=== PATIENT | male | born 1960 | race Caucasian/White ===

== ENCOUNTER 2024-10-18 07:51 | Inpatient (IN) ==
--- NOTE | 2024-10-18 08:12 | Emergency Department Note ---
Impression & Plan SBO (small bowel obstruction), Severe nausea and vomiting, Elevated lactic acid level ED Provider Note NAME: ALISA RUIZ AGE: 64 SEX: M : 1960 ARRIVES VIA: Walk-In INFORMANT: Patient, ED PROVIDER(S): Roger Calles DO CHIEF COMPLAINT: "bowel obstruction" HPI: This is a 64-year-old male who is otherwise healthy presenting to [facility] for further evaluation of nausea and vomiting. Patient is accompanied by his who provide additional history. The patient reports that he has had nausea and vomiting for the last day or so. Last bowel movement and flatus was yesterday morning. Patient is concerned that he has small bowel obstruction. Patient denies any abdominal surgical history. He is professor at [employer]. Patient has no other complaints at this time. They deny fever or chills. No cough or congestion. Denies chest pain or palpitations. No shortness of breath. They deny abdominal pain, nausea and vomiting. No urinary complaints. No recent changes in bowel movements. Patient denies recent changes in medications or OTC supplements. Patient offers no other complaints, today. ADDITIONAL HISTORY OBTAINED: Per HPI Chronic Medical/Social Conditions Affecting Care: Per HPI PAST MEDICAL HISTORY: See Below PAST SURGICAL HISTORY: See Below FAMILY HISTORY: See Below SOCIAL HISTORY: See Below HOME MEDICATIONS: See Below ALLERGIES: See Below VITALS: See Below PHYSICAL EXAMINATION: GENERAL: Sitting up in bed, alert, well appearing, well nourished, no distress, non-toxic EYE EXAM: normal conjunctiva. PERRL and EOM's grossly intact. OROPHARYNX: no exudate, no erythema, lips, buccal mucosa, and tongue normal and mucous membranes are dry NECK: supple, no nuchal rigidity, no adenopathy, non-tender LUNGS: Clear to auscultation. Normal chest wall mechanics HEART: no murmurs, regular rate, regular rhythm ABDOMEN: abdomen soft, non-tender, no masses, no rebound or guarding. BACK: Back is symmetrical on inspection and there is no deformity, no midline tenderness, no CVA tenderness. SKIN: no rashes and no bruising UPPER EXTREMITIES: upper extremities are grossly normal. LOWER EXTREMITIES: No pitting edema. NEURO EXAM: Normal sensorium, GCS 15, normal speech, no gross weakness of arms, no gross weakness of legs. MEDICAL DECISION MAKING: Differential diagnoses includes but not limited to appendicitis, bowel obstruction, diverticulitis, malignancy, nephrolithiasis, gastroenteritis, ACS, PNA, pancreatitis, biliary disease, UTI In summary, this is a 64 year old male who presented with nausea and vomiting. Differential as above. Nursing notes and pertinent past medical records reviewed. Vital signs reviewed and the patient is afebrile and hemodynamically stable. History and presentation revealed otherwise healthy individual with no significant abdominal surgical history presenting with severe nausea and vomiting and failure to pass flatus or bowel movement. Physical examination revealed no significant evidence of peritonitis on exam. As a result of my initial evaluation, we will plan for CT abdomen/pelvis imaging. Will provide antiemetics, pain control as well as IV fluid resuscitation. I would feel it would be less likely for the patient to have a small bowel obstruction given his negative abdominal surgical history. Still could be a possibility. Would also be concern for possible malignancy given his complaints. Diagnostics interpreted by me include EKG and cardiac monitoring as listed below: -Cardiac Monitoring: An order was placed for continuous cardiac monitoring. The monitor shows a rate of 70-90s with regular rhythm. -ECG: EKG independently interpreted by me reveals normal sinus rhythm at a ventricular rate of [address] segment changes to suggest STEMI. Some artifact on baseline. QTc is 421 ms. Patient completed laboratory studies and imaging. Results independently interpreted by me are leukocytosis. No anemia. The patient was managed with IV fluid resuscitation, analgesia and antiemetics. Further laboratory evaluation shows no evidence of kidney dysfunction. Electrolytes are normal. Does have mild hyperglycemia. Lactate is elevated at 2.2. This is minimal. IV fluid resuscitation is ongoing. LFTs are normal besides mild elevation in bilirubin at 1.8. Lipase is normal. CT abdomen/pelvis independently turbid by me reveals a small bowel obstruction without evidence of perforation. Patient's stomach is not severely distended. He has had no further evidence of nausea and vomiting was reporting improvement on reevaluation. Will hold off on NG tube placement. Patient was discussed with general surgery. Just will be down to see the patient. Plan for observation n.p.o. status. Ultimately, the decision was made to admit the patient for small bowel obstruction. It was recommended to admit this patient at 1003. I discussed the case with the hospitalist service via telephone/TigerText and they are agreeable to admit the patient to their services. Based on the above, including the patient's age, coexisting illnesses, labs, imaging, and exam findings the decision to treat as an inpatient. I discussed the patient with the hospitalist team who recommended admission to their services. They received the medications, treatments, interventions indicated above and their condition []. I discussed my findings with the patient and their family and they understand and agree with the treatment plan. All patient / family questions were answered to their satisfaction. Consults/Care Managements Discussions: Per MDM ER treatment provided: See above Procedures:none Critical Care: None The chart was completed utilizing [employer] Speech voice recognition software. Grammatical errors, random word insertions, pronoun errors, and incomplete sentences are an occasional consequence of this system due to software limitations, ambient noise, and hardware issues. Any formal questions or concerns about the content, text, or information contained within the body of this dictation should be directly addressed to the physician for clarification. Past Med/Surg History Problem List (Updated 10/19/24 @ 08:10 by Roger Calles DO) Elevated lactic acid level (Acute) Severe nausea and vomiting (Acute) SBO (small bowel obstruction) (Acute) SBO (small bowel obstruction) Sensorineural hearing loss (SNHL) of left ear with unrestricted hearing of right ear Sensorineural hearing loss (SNHL) of left ear with restricted hearing of right ear Low back pain (Chronic) Routine general medical examination at a health care facility Medical History (Updated 10/19/24 @ 08:10 by Roger Calles DO) No significant past medical history Surgical History No pertinent past surgical history Family History Denies family history of Ovarian cancer Prostate cancer Myocardial infarction Breast cancer Lung cancer Colorectal cancer Stroke Social History Smoking Status: Never smoker Second Hand Exposure: No; Do You Dip or Chew Tobacco: No; Hx Alcohol Use: Yes Alcohol type: beer, wine and hard liquor Hx Substance Use: No Preferred Language: Occitan Communication Ability: Effective Visual Impairment: No Limitations Hearing Ability: Normal 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 Beliefs That Will Affect Care: None Current Living Situation: Spouse Other Information That Helps Us Care for You: No Feels Safe at Home: Yes Safety Concerns: Feels Safe At This Time Childhood Exposure to Second-Hand Smoke: No Assistive Devices: None Allergies Allergies Allergy/AdvReac Type Severity Reaction Status Date / Time No Known Drug Allergies Allergy Verified 10/17/24 10:56 Home Meds Home Medications Medication Instructions Recorded Confirmed No Known Home Medications 03/03/24 10/18/24 Results & Data (ED) Vital Signs Vital Signs - 24 hr 10/18/24 08:12 10/18/24 08:17 10/18/24 08:18 Pulse Rate 82 80 83 Pulse Rate [Apical] Respiratory Rate 20 Blood Pressure 139/91 Blood Pressure [Left Arm] Blood Pressure Mean 105 Blood Pressure Mean [Left Arm] Blood Pressure Position [Left Arm] Pulse Oximetry 98 98 Oxygen Delivery Method Room Air Room Air 10/18/24 09:50 10/18/24 09:50 Pulse Rate 72 Pulse Rate [Apical] 72 Respiratory Rate 20 18 Blood Pressure 105/71 Blood Pressure [Left Arm] 105/71 Blood Pressure Mean 80 Blood Pressure Mean [Left Arm] 82 Blood Pressure Position [Left Arm] Sitting Pulse Oximetry 97 96 Oxygen Delivery Method Room Air Room Air Laboratory Data 10/19/24 04:31 10/19/24 04:31 Lab Results 10/18/24 10/18/24 Range/Units 08:16 08:30 WBC 14.19 H (4.8-10.8) K/ul RBC 5.85 (4.70-6.10) M/uL Hgb 17.0 (14.0-18.0) g/dl Hct 51.7 (42.0-52.0) % MCV 88.4 (80.0-100.0) fL MCH 29.1 (25.0-34.0) pg MCHC 32.9 (32.0-36.0) g/dL RDW Std Deviation 40.6 (36.4-46.3) fL RDW Coeff of Jass 12.6 (11.5-14.5) % Plt Count 396 (130-400) K/uL MPV 10.3 (9.4-12.4) fL Immature Gran % (Auto) 0.4 % Neut % (Auto) 82.4 % Lymph % (Auto) 9.7 % [place] % (Auto) 7.4 % Eos % (Auto) 0.0 % Baso % (Auto) 0.1 % Neut # (Auto) 11.70 H (1.40-6.50) K/uL Lymph # (Auto) 1.37 (1.20-3.40) K/uL [place] # (Auto) 1.05 H (0.11-0.59) K/uL Eos # (Auto) 0.00 (0.00-0.50) K/uL Baso # (Auto) 0.01 (0.00-0.20) K/uL Immature Gran # (Auto) 0.06 (0.01-0.20) K/uL Sodium 138 (136-145) mmol/L Potassium 4.2 (3.5-5.1) mmol/L Chloride 100 (98-107) mmol/L Carbon Dioxide 27 (21-32) mmol/L Anion Gap 11 (3-11) BUN 19 (6-23) mg/dl Creatinine 1.22 (0.6-1.4) mg/dl Est Cr Clr Drug Dosing 63.2 ml/min eGFR 66.20 BUN/Creatinine Ratio 15.6 (10-20) Glucose 143 H (70-99(Fasting)) mg/dl Lactate 2.2 H* (0.4-2.0) mmol/L Calcium 9.8 (8.6-10.3) mg/dl Total Bilirubin 1.8 H (0.2-1.0) mg/dl AST 13 (13-39) U/L ALT 9 (7-52) U/L Alkaline Phosphatase 51 (34-104) U/L C-Reactive Protein 0.92 H (0-0.5) mg/dl Total Protein 8.1 (6.0-8.3) gm/dl Albumin 4.6 (3.4-5.0) gm/dl Globulin 3.5 (2.5-4.0) gm/dl Albumin/Globulin Ratio 1.3 (0.9-2) Lipase 19 (11-82) U/L Procalcitonin 0.02 (0-0.5) ng/ml Administered Medications Lactated Ringer's (Lr) 1,000 mls @ 115 mls/hr IV .Q8H42M [facility] Stop: 10/21/24 11:29 Last Admin: 10/19/24 06:03 Dose: 115 mls/hr Documented By: Infusion: 10/19/24 05:41 Dose: Infused Documented By: Admin: 10/18/24 20:59 Dose: 115 mls/hr Documented By: Infusion: 10/18/24 20:17 Dose: Infused Documented By: Admin: 10/18/24 11:35 Dose: 115 mls/hr Documented By: QGV Discontinued Medications Droperidol (Droperidol 5 Mg/2 Ml Vial) 1.25 mg IV ONE STA Stop: 10/18/24 08:13 Last Admin: 10/18/24 08:31 Dose: 1.25 mg Documented By: QGV Fentanyl Citrate (Fentanyl Citrate Pf 100 Mcg/2 Ml Vial) 50 mcg IV Q15M PRN PRN Reason: Pain Stop: 11/01/24 08:11 Last Admin: 10/18/24 08:31 Dose: 50 mcg Documented By: QGV Sodium Chloride (Nss) 1,000 mls @ 999 mls/hr IV .Q1H1M STA Stop: 10/18/24 09:12 Last Infusion: 10/18/24 09:50 Dose: Infused Documented By: Admin: 10/18/24 08:31 Dose: 999 mls/hr Documented By: QGV Famotidine (Pepcid 20mg Iv Push) 20 mg in 5 mls @ 2.5 mls/min IV NOW STA Stop: 10/18/24 11:21 Last Admin: 10/18/24 11:35 Dose: 2.5 mls/min Documented By: QGV Ioversol (Optiray 320 100ml) 94 ml IV ONCE ONE Stop: 10/18/24 09:15 Last Admin: 10/18/24 09:15 Dose: 94 ml Documented By: ARNULFO Imaging Data Radiologist's Impression: Abdomen/Pelvis CT 10/18/24 08:[address] WITH IV CONTRAST CT DOSE: 938.46 mGy.cm HISTORY: concern for SBO, but no abd surgical history TECHNIQUE: Multiaxial CT images of the abdomen and pelvis were performed following the IV administration of 90 cc of Optiray, A dose lowering technique was utilized adhering to the principles of ALARA. COMPARISON STUDY: None FINDINGS: ABDOMEN: There are a few tiny cysts at the liver. Otherwise the liver, gallbladder, spleen, pancreas, and adrenal glands are unremarkable. There are a few tiny cyst at the kidneys. There is no hydronephrosis bilaterally. There are mild atherosclerotic calcifications. No abdominal aortic aneurysm. Pelvis: Prostate is enlarged. Urinary bladder is nondistended. There is motion artifact. There is mild retained stool. There is mild colonic diverticulosis. No acute diverticulitis. There is dilatation of the small bowel from the mid jejunal region to the distal jejunal or proximal ileal region measuring up to 3.5 cm diameter. Mid and distal ileum are decompressed. There is trace free fluid. No free air or abscess. Osseous structures: No acute osseous findings. IMPRESSION: Findings consistent with small bowel obstruction. No free air seen to suggest perforation. ACT 112: Negative or not required by law. The above report was generated using voice recognition software. It may contain grammatical, syntax or spelling errors. Electronically signed by: Teodoro Cuello M.D. 10/18/2024 9:34 AM Discharge Plan Visit Data Chief Complaint: Vomiting Stated Complaint: NAUSEA, VOMITTING, CANNOT EAT ED Provider: Roger Calles Discharge Problem: SBO (small bowel obstruction), Severe nausea and vomiting, Elevated lactic acid level Patient Disposition: Admitted As Inpatient Condition: Fair Discharge Instructions Interventions: ED Discharge Assessment Last Done: 10/18/24 13:27
[2024-10-18 08:28] LABS: Hematocrit (blood only) 51.7 % (42.0-52.0); Hemoglobin 17.0 g/dl (14.0-18.0); Immature Granulocytes # (auto) 0.06 K/uL (0.01-0.20); Immature Granulocytes % (auto) 0.4 %; Mean Corpuscular Hemoglobin 29.1 pg (25.0-34.0); Mean Corpuscular Volume 88.4 fL (80.0-100.0); Platelet Count 396 K/uL (130-400); RDW Standard Deviation 40.6 fL (36.4-46.3); Red Blood Count 5.85 M/uL (4.70-6.10); White Blood Count 14.19 K/ul (4.8-10.8)
[2024-10-18] MEDS: SODIUM CHLORIDE 0.9% 1,000 ML IV STA (08:31)
[2024-10-18] MEDS: DROPERIDOL 5 MG/2 ML VIAL IV STA (08:31)
[2024-10-18 08:48] LABS: Alanine Aminotransferase 9.0 U/L (7-52); Albumin Globulin Ratio 1.3 (0.9-2); Alkaline Phosphatase 51.0 U/L (34-104); Anion Gap 11.0 (3-11); Bilirubin,Total 1.8 mg/dl (0.2-1.0); Blood Urea Nitrogen 19.0 mg/dl (6-23); Calcium 9.8 mg/dl (8.6-10.3); Carbon Dioxide 27.0 mmol/L (21-32); Chloride 100.0 mmol/L (98-107); Creatinine Clr Calc Pharmacy 63.2 ml/min; Globulin 3.5 gm/dl (2.5-4.0); Glucose 143.0 mg/dl (70-99(Fasting)); Lipase 19.0 U/L (11-82); Potassium 4.2 mmol/L (3.5-5.1); Sodium 138.0 mmol/L (136-145); Total Protein 8.1 gm/dl (6.0-8.3)
[2024-10-18] MEDS: OPTIRAY 320 100ml IV ONE (09:15)
--- NOTE | 2024-10-18 09:36 | CT Scan Report ---
ABDOMEN AND PELVIS CT WITH IV CONTRAST CT DOSE: 938.46 mGy.cm HISTORY: concern for SBO, but no abd surgical history TECHNIQUE: Multiaxial CT images of the abdomen and pelvis were performed following the IV administrat ion of 90 cc of Optiray, A dose lowering technique was utilized adhering to the principles of ALARA. COMPARISON STUDY: None FINDINGS: ABDOMEN: There are a few tiny cysts at the liver. Otherwise the liver, gallbladder, spleen, pancreas, and adrenal glands are unremarkable. There are a few tiny cyst at the kidneys. There is no hydroneph rosis bilaterally. There are mild atherosclerotic calcifications. No abdominal aortic aneurysm. Pelvis: Prostate is enlarged. Urinary bladder is nondistended. There is motion artifact. There is mil d retained stool. There is mild colonic diverticulosis. No acute diverticulitis. There is dilatation of the small bowel from the mid jejunal region to the distal jejunal or proximal ileal region measuri ng up to 3.5 cm diameter. Mid and distal ileum are decompressed. There is trace free fluid. No free a ir or abscess. Osseous structures: No acute osseous findings. IMPRESSION: Findings consistent with small bowel obstruction. No free air seen to suggest perforation . ACT 112: Negative or not required by law. The above report was generated using voice recognition software. It may contain grammatical, syntax o r spelling errors. Electronically signed by: Teodoro Cuello M.D. 10/18/2024 9:34 AM
--- NOTE | 2024-10-18 10:55 | History & Physical Report ---
Date of Service October 18, 2024 Assessment & Plan (1) SBO (small bowel obstruction): Plan This patient is a 64-year-old male without significant PMH who presented on 10/18 for abdominal pain, nausea and vomiting. A/P CT on arrival was consistent with small bowel obstruction; no free air seen to suggest perforation. #Small bowel obstruction NG tube deferred on arrival; may require NG tube if recurrence of vomiting Leukocytosis at 14.19 on arrival No other signs of bowel compromise (no tachycardia, fever, acidosis; no signs of peritonitis) Procalcitonin and CRP ordered, pending Strict n.p.o. IV fluid with LR at 125mL/hr IV famotidine 20 mg daily IV pain control with acetaminophen and Dilaudid PRN IV Zofran PRN General Surgery consult appreciated Disposition: Obs -admit to [facility] VTE PPx: SCDs History of Present Illness Primary Care Provider: NO PCP Mr. Masterson is a 64-year-old male with PMH of SNHL who presented on 10/18 after developing abdominal pain, nausea, and vomiting. Patient woke up feeling fine yesterday, but then around 8 AM started having lower abdominal pain intermittently. Did not take any pain medicine for this. Later in the day he started vomiting and was unable to keep down solids or liquids. He vomited again this morning. Last bowel movement was yesterday morning just before all his symptoms began; he has not had a bowel movement since. No prior history of abdominal surgeries, adhesions, or hernias. No prior history of small bowel obstructions. No sick contacts. No diarrhea. No fevers. Patient denies smoking or tobacco use. He reports he is not currently having any abdominal pain, but earlier yesterday he had 7 out of 10 abdominal pain in the lower stomach just below the umbilicus; no radiation. Patient does not take any medicine on a daily basis. Vital signs stable at time of admission. ED course: Droperidol 1.25 mg IV NSS 1000 mL IV Fentanyl 50 mcg IV ROS: Patient endorses abdominal pain just below the umbilicus (improving), nausea, and vomiting. Patient denies fever, chills, night sweats, lightheadedness when walking, chest pain, chest palpitations, SOB, pleuritic CP, cough, diarrhea, or changes in urinary habits. Allergies Allergy/AdvReac Type Severity Reaction Status Date / Time No Known Drug Allergies Allergy Verified 10/17/24 10:56 Home Medications Medication Instructions Recorded Confirmed Type No Known Home Medications 03/03/24 10/18/24 History Past Med/Surg History Problem List (Updated 10/18/24 @ 11:14 by Rosenda Tena PA-C) SBO (small bowel obstruction) Sensorineural hearing loss (SNHL) of left ear with unrestricted hearing of right ear Sensorineural hearing loss (SNHL) of left ear with restricted hearing of right ear Low back pain (Chronic) Routine general medical examination at a [facility] facility Medical History (Updated 10/18/24 @ 11:14 by Rosenda Tena PA-C) No significant past medical history Surgical History No pertinent past surgical history Family History Denies family history of Ovarian cancer Prostate cancer Myocardial infarction Breast cancer Lung cancer Colorectal cancer Stroke Social History Smoking Status: Never smoker Second Hand Exposure: No; Do You Dip or Chew Tobacco: No; Hx Alcohol Use: Yes Hx Substance Use: No Preferred Language: Yi Communication Ability: Effective Visual Impairment: No Limitations Hearing Ability: Normal Derrick Worker Required: No Feels Safe at Home: Yes Childhood Exposure to Second-Hand Smoke: No Review of Systems Review of Systems: See HPI above Physical Exam Physical Exam: General: no acute distress; pleasant affect; at bedside; non-toxic appearing; well-nourished; cooperative; SpO2 97% on RA HEENT: normocephalic, atraumatic; no scleral icterus; PERRLA; vision and hearing intact Neck: supple; trachea midline Skin: warm, dry without signs of tenting; no cyanosis; no rashes, bruising, lesions, or erythema noted CV: chest wall NTP; RRR; S1/S2 normal; no murmurs/rubs/gallops; pulses intact and symmetric at radial, DP, and PT Lungs: no acute respiratory distress; symmetrical chest wall expansion; clear breath sounds across all lung van w/o adventitious sounds; no wheezing ABD: Soft; no rashes or bruising appreciable in the abdomen or flanks bilaterally; left upper quadrant is mildly TTP; hypogastric region just below the umbilicus is TTP; otherwise NTP; hypoactive present; no rebound/guarding; no distention MSK: no tics or fasciculations; no edema noted in the LEs b/l, nonerythematous Neuro: A&Ox3; normal mood and affect; fluent speech; no focal deficits; patient reports sensation is intact and symmetric in the lower extremity bilaterally Results & Data Results & Data Vital Signs (Past 12 Hours) Vital Signs Temp Pulse Pulse Resp BP BP Pulse Ox 10/18/24 09:50 72 20 105/71 97 10/18/24 08:18 83 10/18/24 08:17 80 20 139/91 98 10/18/24 08:12 82 98 10/18/24 07:59 36.5 C 100 H 19 97/67 L 97 O2 Del Method 10/18/24 09:50 Room Air 10/18/24 08:18 10/18/24 08:17 Room Air 10/18/24 08:12 Room Air 10/18/24 07:59 Room Air Laboratory Results Abnormal lab results 10/18/24 10/18/24 Range/Units 08:16 08:30 WBC 14.19 H (4.8-10.8) K/ul Neut # (Auto) 11.70 H (1.40-6.50) K/uL [place] # (Auto) 1.05 H (0.11-0.59) K/uL Glucose 143 H (70-99(Fasting)) mg/dl Lactate 2.2 H* (0.4-2.0) mmol/L Total Bilirubin 1.8 H (0.2-1.0) mg/dl Diagnostic Findings Abdomen/Pelvis CT 10/18/24 08:[address] WITH IV CONTRAST CT DOSE: 938.46 mGy.cm HISTORY: concern for SBO, but no abd surgical history TECHNIQUE: Multiaxial CT images of the abdomen and pelvis were performed following the IV administration of 90 cc of Optiray, A dose lowering technique was utilized adhering to the principles of ALARA. COMPARISON STUDY: None FINDINGS: ABDOMEN: There are a few tiny cysts at the liver. Otherwise the liver, gallbladder, spleen, pancreas, and adrenal glands are unremarkable. There are a few tiny cyst at the kidneys. There is no hydronephrosis bilaterally. There are mild atherosclerotic calcifications. No abdominal aortic aneurysm. Pelvis: Prostate is enlarged. Urinary bladder is nondistended. There is motion artifact. There is mild retained stool. There is mild colonic diverticulosis. No acute diverticulitis. There is dilatation of the small bowel from the mid jejunal region to the distal jejunal or proximal ileal region measuring up to 3.5 cm diameter. Mid and distal ileum are decompressed. There is trace free fluid. No free air or abscess. Osseous structures: No acute osseous findings. IMPRESSION: Findings consistent with small bowel obstruction. No free air seen to suggest perforation. ACT 112: Negative or not required by law. The above report was generated using voice recognition software. It may contain grammatical, syntax or spelling errors. Electronically signed by: Teodoro Cuello M.D. 10/18/2024 9:34 AM ECG Additional Comments: ECG revealed NSR at 79 bpm; QTc 421; no prior EKGs for comparison Code Status & VTE Plan Code Status Full code VTE Prophylaxis Plan VTE Prophylaxis will be ordered: Yes Supervising Physician Co-Signing Physician Notes I personally examined the patient and verified all valentine points of history and exam, discussed case, and agree with decision making with Jason Cabral PAC feeling about the same as this AM. no worse. vitals noted nad heent nc at mmm breathing unlabored noaccessory muscles good effort skin no rashes no pallor or icterus labs and diagnostics reviewed sbo - appreciate surgical consult given no prior abd surgeries. continue current care. otherwise as above PG Care Time/CCT Total # of Minutes Spent Total Time Spent with Patient: Total time spent is greater than 50% in coordination of care (as documented) at patient's floor/unit and/or counseling patient: [place] [address] INT INP/OBS CARE 3/75MIN Patient Type New Medical Decision Making Low Complexity Diagnoses SBO (small bowel obstruction) K56.609
--- NOTE | 2024-10-18 11:16 | Surgery Consultation ---
Date of Consultation October 18, 2024 Assessment & Plan (1) SBO (small bowel obstruction): 64 yo male with one day history of central abdominal pain with decreased bowel function and nausea and vomiting. CT scan with SBO. mild leukocytosis and elevated lactic acid at 2.2 likely secondary to dehydration and vomiting. Abdomen soft, nondistended,, tender in central abdomen without guarding ,rebound or peritonitis. Discussed imaging and lab findings with patient and . Discussed etiology of SBO and will require close monitoring and conservative management. No acute surgical intervention required at this time. NPO, bowel rest, IV fluids, pain management and antiemetics as needed, encouraged ambul ation. Medicine admit. Will follow along Discussed with Dr. romero who agrees with above. History of Present Illness Reason for Consultation: SBO Requesting Physician: Dr. Calles History of Present Illness Mr. Masterson is a 64 healthy male who presented to ED with increasing general abdominal pain with decreased bowel function and nausea and vomiting x 4. Vomiting bilious, no blood. Pain started yesterday morning suddenly in central abdomen, pain intermittent waxing and waning in severity. [place] distended this morning. Unable to keep food or liquids down. No history of prior SBO or prior abdominal surgeries. Ate a stuffed pepper yesterday morning. No recent sick contacts. Currently feeling much better , pain minimal, no longer feels distended but still has not been able to pass gas. No vomiting while in ED. Allergies Allergy/AdvReac Type Severity Reaction Status Date / Time No Known Drug Allergies Allergy Verified 10/17/24 10:56 Home Medications Medication Instructions Recorded Confirmed Type No Known Home Medications 03/03/24 10/18/24 History Patient History Medical History (Updated 10/18/24 @ 11:14 by Rosenda Tena PA-C) No significant past medical history Surgical History No pertinent past surgical history Family History Denies family history of Ovarian cancer Prostate cancer Myocardial infarction Breast cancer Lung cancer Colorectal cancer Stroke Social History Smoking Status: Never smoker Second Hand Exposure: No; Do You Dip or Chew Tobacco: No; Hx Alcohol Use: Yes Hx Substance Use: No Preferred Language: Swedish Communication Ability: Effective Visual Impairment: No Limitations Hearing Ability: Normal Network Security Officer Required: No Feels Safe at Home: Yes Childhood Exposure to Second-Hand Smoke: No Physical Exam Constitutional: WD/WN, vitals as above cooperative and comfortable; no acute distress and not ill appearing Respiratory: normal respiratory effort, lungs clear to auscultation Cardiovascular: RRR, no murmur, no edema Gastrointestinal (Abdomen): Inspection/Auscultation: abdomen normal to inspection; abdomen not distended Percussion/Palpation: + abdomen tender (mild in central abdomen) and abdomen soft; no guarding, abdomen not rigid and abdomen not firm no peritonitis Skin: no rashes, warm and dry Psychiatric: A+Ox3, euthymic affect Results & Data Vital Signs (Past 12 Hours) Vital Signs Temp Pulse Pulse Resp BP BP Pulse Ox 10/18/24 09:50 72 20 105/71 97 10/18/24 08:18 83 10/18/24 08:17 80 20 139/91 98 10/18/24 08:12 82 98 10/18/24 07:59 36.5 C 100 H 19 97/67 L 97 O2 Del Method 10/18/24 09:50 Room Air 10/18/24 08:18 10/18/24 08:17 Room Air 10/18/24 08:12 Room Air 10/18/24 07:59 Room Air Laboratory Results 10/18/24 10/18/24 Range/Units 08:30 08:16 WBC 14.19 H (4.8-10.8) K/ul RBC 5.85 (4.70-6.10) M/uL Hgb 17.0 (14.0-18.0) g/dl Hct 51.7 (42.0-52.0) % MCV 88.4 (80.0-100.0) fL MCH 29.1 (25.0-34.0) pg MCHC 32.9 (32.0-36.0) g/dL RDW Std Deviation 40.6 (36.4-46.3) fL RDW Coeff of Jass 12.6 (11.5-14.5) % Plt Count 396 (130-400) K/uL MPV 10.3 (9.4-12.4) fL Immature Gran % (Auto) 0.4 % Neut % (Auto) 82.4 % Lymph % (Auto) 9.7 % [place] % (Auto) 7.4 % Eos % (Auto) 0.0 % Baso % (Auto) 0.1 % Neut # (Auto) 11.70 H (1.40-6.50) K/uL Lymph # (Auto) 1.37 (1.20-3.40) K/uL [place] # (Auto) 1.05 H (0.11-0.59) K/uL Eos # (Auto) 0.00 (0.00-0.50) K/uL Baso # (Auto) 0.01 (0.00-0.20) K/uL Immature Gran # (Auto) 0.06 (0.01-0.20) K/uL Sodium 138 (136-145) mmol/L Potassium 4.2 (3.5-5.1) mmol/L Chloride 100 (98-107) mmol/L Carbon Dioxide 27 (21-32) mmol/L Anion Gap 11 (3-11) BUN 19 (6-23) mg/dl Creatinine 1.22 (0.6-1.4) mg/dl Est Cr Clr Drug Dosing 63.2 ml/min eGFR 66.20 BUN/Creatinine Ratio 15.6 (10-20) Glucose 143 H (70-99(Fasting)) mg/dl Lactate 2.2 H* (0.4-2.0) mmol/L Calcium 9.8 (8.6-10.3) mg/dl Total Bilirubin 1.8 H (0.2-1.0) mg/dl AST 13 (13-39) U/L ALT 9 (7-52) U/L Alkaline Phosphatase 51 (34-104) U/L Total Protein 8.1 (6.0-8.3) gm/dl Albumin 4.6 (3.4-5.0) gm/dl Globulin 3.5 (2.5-4.0) gm/dl Albumin/Globulin Ratio 1.3 (0.9-2) Lipase 19 (11-82) U/L Diagnostic Findings ABDOMEN AND PELVIS CT WITH IV CONTRAST CT DOSE: 938.46 mGy.cm HISTORY: concern for SBO, but no abd surgical history TECHNIQUE: Multiaxial CT images of the abdomen and pelvis were performed following the IV administration of 90 cc of Optiray, A dose lowering technique was utilized adhering to the principles of ALARA. COMPARISON STUDY: None FINDINGS: ABDOMEN: There are a few tiny cysts at the liver. Otherwise the liver, gallbladder, spleen, pancreas, and adrenal glands are unremarkable. There are a few tiny cyst at the kidneys. There is no hydronephrosis bilaterally. There are mild atherosclerotic calcifications. No abdominal aortic aneurysm. Pelvis: Prostate is enlarged. Urinary bladder is nondistended. There is motion artifact. There is mild retained stool. There is mild colonic diverticulosis. No acute diverticulitis. There is dilatation of the small bowel from the mid jejunal region to the distal jejunal or proximal ileal region measuring up to 3.5 cm diameter. Mid and distal ileum are decompressed. There is trace free fluid. No free air or abscess. Osseous structures: No acute osseous findings. IMPRESSION: Findings consistent with small bowel obstruction. No free air seen to suggest perforation. Personally reviewed ct scan images and concur with above findings
[2024-10-18] MEDS: LACTATED RINGER'S 1,000 ML IV SCH (11:35)
[2024-10-18] MEDS: FAMOTIDINE 20MG IV PUSH 20 MG/5 ML SYR IV STA (11:35)
--- NOTE | 2024-10-18 12:23 | Electrocardiogram Report ---
Test Reason : Blood Pressure : */* mmHG Vent. Rate : 79 BPM Atrial Rate : 79 BPM P-R Int : 158 ms QRS Dur : 96 ms QT Int : 368 ms P-R-T Axes : -19 -10 -21 degrees QTcB Int : 421 ms Normal sinus rhythm Normal ECG No previous ECGs available Confirmed by Murali Dover ([id number]) on 10/18/2024 12:23:39 PM Referred By: REFERRED SELF Confirmed By: Murali Dover
[2024-10-18] MEDS ORDERED: ACETAMINOPHEN 1,000 MG/100 ML VIAL IV PRN (13:27)
[2024-10-18] MEDS ORDERED: HYDROmorphone INJ 0.5 MG/0.5 ML SYR IV PRN (13:27)
[2024-10-18 13:59] LABS: Appearance Urine Clear (Clear); Bacteria Urine Automated None Seen (None Seen); Cast Urine Automated 0-2 /lpf (0-2); Epithelial Cell Urine Auto 0-2 /hpf (0-2); Glucose Urine UA Negative (Negative); WBC Urine Automated 0-5 /hpf (0-5)
[2024-10-19 05:09] LABS: Hematocrit (blood only) 45.8 % (42.0-52.0); Hemoglobin 15.0 g/dl (14.0-18.0); Immature Granulocytes # (auto) 0.05 K/uL (0.01-0.20); Immature Granulocytes % (auto) 0.5 %; Mean Corpuscular Hemoglobin 28.8 pg (25.0-34.0); Mean Corpuscular Volume 88.1 fL (80.0-100.0); Platelet Count 314 K/uL (130-400); RDW Standard Deviation 41.7 fL (36.4-46.3); Red Blood Count 5.20 M/uL (4.70-6.10); White Blood Count 11.06 K/ul (4.8-10.8)
[2024-10-19 05:29] LABS: Anion Gap 7.0 (3-11); Blood Urea Nitrogen 22.0 mg/dl (6-23); Calcium 8.9 mg/dl (8.6-10.3); Carbon Dioxide 27.0 mmol/L (21-32); Chloride 105.0 mmol/L (98-107); Creatinine Clr Calc Pharmacy 91.7 ml/min; Glucose 110.0 mg/dl (70-99(Fasting)); Potassium 3.8 mmol/L (3.5-5.1); Sodium 139.0 mmol/L (136-145)
[2024-10-19] MEDS: FAMOTIDINE 20MG IV PUSH 20 MG/5 ML SYR IV SCH (08:28)
--- NOTE | 2024-10-19 10:31 | Surgery Progress Note ---
Date of Service October 19, 2024 Assessment & Plan (1) SBO (small bowel obstruction): Plan: 64 yo male with one day history of central abdominal pain with decreased bowel function and nausea and vomiting. CT scan with SBO. mild leukocytosis and elevated lactic acid at 2.2 likely secondary to dehydration and vomiting. 10/19/24 avss small bowel movement and flatus but still feeling distended Abdomen soft, nondistended,, tender in central abdomen without guarding ,rebound or peritonitis. Plan: No acute surgical intervention required at this time. NPO, bowel rest, IV fluids, pain management and antiemetics as needed, encouraged ambulation to increase GI motility hopefully clear liquids this afternoon Discussed with Dr. romero who agrees with above. Admission and Anticipated Discharge Date Admission Date: October 18, 2024 Subjective feeling okay, still feeling a bit bloated small formed bowel movement and flatus this am but not alot no n,v Physical Exam Constitutional: WD/WN, vitals as above cooperative and comfortable; no acute distress and not ill appearing Respiratory: normal respiratory effort; no respiratory distress Gastrointestinal (Abdomen): Inspection/Auscultation: + abdomen distended (mild); + abnormal bowel sounds Percussion/Palpation: + abdomen tender (mild in central lower abdomen) and abdomen soft; no guarding, abdomen not rigid and abdomen not firm Skin: no rashes, warm and dry Psychiatric: Orientation: alert and oriented x 3 Results & Data Vital Signs (Past 12 Hours) Vital Signs Temp Pulse Pulse Resp BP BP Pulse Ox 10/19/24 06:03 77 19 95 10/19/24 05:03 67 17 96 10/19/24 05:00 110/76 10/19/24 04:14 70 10/19/24 04:00 117/70 10/19/24 04:00 69 17 117/70 96 10/19/24 03:00 65 20 104/73 96 10/19/24 01:12 36.4 C L 79 17 102/70 96 O2 Del Method 10/19/24 06:03 10/19/24 05:03 10/19/24 05:00 10/19/24 04:14 10/19/24 04:00 10/19/24 04:00 Room Air 10/19/24 03:00 Room Air 10/19/24 01:12 Room Air Laboratory Results 10/19/24 10/18/24 10/18/24 Range/Units 04:31 13:26 08:16 WBC 11.06 H (4.8-10.8) K/ul RBC 5.20 (4.70-6.10) M/uL Hgb 15.0 (14.0-18.0) g/dl Hct 45.8 (42.0-52.0) % MCV 88.1 (80.0-100.0) fL MCH 28.8 (25.0-34.0) pg MCHC 32.8 (32.0-36.0) g/dL RDW Std Deviation 41.7 (36.4-46.3) fL RDW Coeff of Jass 13.0 (11.5-14.5) % Plt Count 314 (130-400) K/uL MPV 10.4 (9.4-12.4) fL Immature Gran % (Auto) 0.5 % Neut % (Auto) 74.0 % Lymph % (Auto) 12.2 % [place] % (Auto) 12.6 % Eos % (Auto) 0.3 % Baso % (Auto) 0.4 % Neut # (Auto) 8.20 H (1.40-6.50) K/uL Lymph # (Auto) 1.35 (1.20-3.40) K/uL [place] # (Auto) 1.39 H (0.11-0.59) K/uL Eos # (Auto) 0.03 (0.00-0.50) K/uL Baso # (Auto) 0.04 (0.00-0.20) K/uL Immature Gran # (Auto) 0.05 (0.01-0.20) K/uL Sodium 139 (136-145) mmol/L Potassium 3.8 (3.5-5.1) mmol/L Chloride 105 (98-107) mmol/L Carbon Dioxide 27 (21-32) mmol/L Anion Gap 7 (3-11) BUN 22 (6-23) mg/dl Creatinine 0.84 D (0.6-1.4) mg/dl Est Cr Clr Drug Dosing 91.7 ml/min eGFR 97.38 BUN/Creatinine Ratio 26.2 H (10-20) Glucose 110 H (70-99(Fasting)) mg/dl Calcium 8.9 (8.6-10.3) mg/dl C-Reactive Protein 0.92 H (0-0.5) mg/dl Procalcitonin 0.02 (0-0.5) ng/ml Urine Color Yellow Urine Appearance Clear (Clear) Urine pH 5.5 (4.5-7.5) Ur Specific Ione > 1.045 H (1.000-1.030) Urine Protein 1+ H (Negative) Urine Glucose (UA) Negative (Negative) Urine Ketones Trace H (Negative) Urine Blood Negative (Negative) Urine Nitrite Negative (Negative) Urine Bilirubin Negative (Negative) Urine Urobilinogen Negative (Negative) Ur Leukocyte Esterase Negative (Negative) Urine WBC (Auto) 0-5 (0-5) /hpf Urine RBC (Auto) 3-5 H (0-2) /hpf U Hyaline Cast (Auto) 0-2 (0-2) /lpf U Epithel Cells (Auto) 0-2 (0-2) /hpf Urine Bacteria (Auto) None Seen (None Seen) Urine Comment
--- NOTE | 2024-10-19 17:08 | Hospitalist Progress Note ---
Date of Service October 19, 2024 Assessment & Plan (1) SBO (small bowel obstruction): Plan This patient is a 64-year-old male without significant PMH who presented on 10/18 for abdominal pain, nausea and vomiting. A/P CT on arrival was consistent with small bowel obstruction; no free air seen to suggest perforation. #Small bowel obstruction NG tube deferred on arrival; may require NG tube if recurrence of vomiting Leukocytosis trend 14 -> 11 No other signs of bowel compromise (no tachycardia, fever, acidosis; no signs of peritonitis) Procalcitonin WNL IV fluid with LR at 125mL/hr IV famotidine 20 mg daily IV pain control with acetaminophen and Dilaudid PRN IV Zofran PRN General Surgery consult appreciated -nonoperative/conservative measures Patient advance to clear liquid diet for lunch today However, he reported feeling "bloated" and nauseous several hours after eating He also reports he has been passing gas throughout the day, and that he had a small bowel movement this afternoon Disposition: If patient tolerates advancements in diet, potential discharge home in the next 1 to 2 days VTE PPx: SCDs Admission and Anticipated Discharge Date Admission Date: October 18, 2024 Supervising Physician Co-Signing Physician Notes Attending Attestation - Chart reviewed, care plan d/w KADEN Cabral. I agree w/ the valentine components of his documentation. Appreciate general surgery assistance with SBO. Temo Gordon MD Subjective Mr. Masterson has been ambulating independently throughout the halls this morning. He is happy to report that he is still passing small less gas, and had 2 small BMs this morning (brown, small, solid in consistency). No blood in his stool. No dark tarry stool or diarrhea. He denies any fevers overnight. No nausea or vomiting. He reports he does not have any abdominal pain at this time. He is amenable to trying a liquid diet today, advancing as tolerated. ROS: Patient denies abdominal pain, chest pain, SOB, fevers, nausea, vomiting, diarrhea, or blood in the urine or stool. Review of Systems Review of Systems: See HPI above Physical Exam Physical Exam: General: no acute distress; pleasant affect; patient exhibits ability to ambulate independently in the room in the hallway; non-toxic appearing; well- nourished; cooperative; SpO2 95% on RA HEENT: normocephalic, atraumatic; no scleral icterus; PERRLA; vision and hearing intact Neck: supple; trachea midline Skin: warm, dry without signs of tenting; no cyanosis; no rashes, bruising, lesions, or erythema noted CV: chest wall NTP; RRR; S1/S2 normal; no murmurs/rubs/gallops; pulses intact and symmetric at radial, DP, and PT Lungs: no acute respiratory distress; symmetrical chest wall expansion; clear breath sounds across all lung van w/o adventitious sounds; no wheezing ABD: Soft; no rashes or bruising appreciable in the abdomen or flanks bilaterally; NTP in all 4 quadrants; no rebound/guarding; no distention MSK: no tics or fasciculations; no edema noted in the LEs b/l, nonerythematous Neuro: A&Ox3; normal mood and affect; fluent speech; no focal deficits; patient reports sensation is intact and symmetric in the lower extremity bilaterally Results & Data Results & Data Vital Signs (Past 12 Hours) Vital Signs Temp Pulse Pulse Resp BP Pulse Ox O2 Del Method 10/19/24 15:32 36.7 C 64 18 122/81 95 Room Air 10/19/24 12:03 36.6 C 68 18 119/78 95 Room Air 10/19/24 06:03 77 19 95 PG Care Time/CCT Total # of Minutes Spent Total Time Spent with Patient: Total time spent is greater than 50% in coordination of care (as documented) at patient's floor/unit and/or counseling patient: Coding [place] [address] SUB INP/OBS CARE 2/35MIN Patient Type Established Medical Decision Making Moderate Complexity Diagnoses SBO (small bowel obstruction) K56.609
[2024-10-19] MEDS: ONDANSETRON INJ 2 MG/ML 2 ML VIAL IV PRN (20:55)
[2024-10-20] MEDS: FAMOTIDINE 20MG IV PUSH 20 MG/5 ML SYR IV STA (01:38)
--- NOTE | 2024-10-20 08:49 | XRay Report ---
KUB HISTORY: eval SBO COMPARISON STUDY: 10/18/2024 FINDINGS: There is small bowel distention measuring up to 4.5 cm diameter, grossly stable. No colonic distention seen. No significant retained stool. No gross free air. IMPRESSION: Grossly stable small bowel distention. ACT 112: Negative or not required by law. The above report was generated using voice recognition software. It may contain grammatical, syntax o r spelling errors. Electronically signed by: Teodoro Cuello M.D. 10/20/2024 8:48 AM
--- NOTE | 2024-10-20 08:55 | Surgery Progress Note ---
Date of Service October 20, 2024 Assessment & Plan (1) SBO (small bowel obstruction): Plan: 64 yo male with one day history of central abdominal pain with decreased bowel function and nausea and vomiting. CT scan with SBO. mild leukocytosis and elevated lactic acid at 2.2 likely secondary to dehydration and vomiting. No history of prior abdominal surgeries 10/20/24 avss +nausea, bloating, hiccups with no bowel function since starting clears yesterday Abdomen soft, mildly distended in central abdomen Plan: urgent KUB to eval distention, likely will need NGT placed given nausea, reflux, belching and hiccups consider SBFT today given no surgical history as diagnostic but potentially therapeutic NPO Continue medical management IV Pepcid ambulate/ increase activity Discussed with Dr. Awan who agrees with above. Admission and Anticipated Discharge Date Admission Date: October 18, 2024 Subjective not feeling good since yesterday afternoon not passing gas, no bowel movement started having nausea, bleching, and hiccups with more bloating after clear liquids yesterday no abdominal pain jsut soreness in mid abdomen Physical Exam Constitutional: WD/WN, vitals as above cooperative and comfortable; no acute distress and not ill appearing Respiratory: normal respiratory effort; no respiratory distress, no labored breathing and no retractions Gastrointestinal (Abdomen): Inspection/Auscultation: + abdomen distended (mild distention); no hypoactive bowel sounds Percussion/Palpation: + abdomen tender (mild in central lower abdomen) and abdomen soft; no guarding, abdomen not rigid and abdomen not firm Skin: no rashes, warm and dry Psychiatric: Orientation: alert and oriented x 3 Results & Data Vital Signs (Past 12 Hours) Vital Signs Temp Pulse Resp BP Pulse Ox O2 Del Method 10/20/24 07:35 36.6 C 76 16 130/78 96 Room Air
--- NOTE | 2024-10-20 09:30 | Hospitalist Progress Note ---
Date of Service October 20, 2024 Assessment & Plan (1) SBO (small bowel obstruction): Plan This patient is a 64-year-old male without significant PMH who presented on 10/18 for abdominal pain, nausea and vomiting. A/P CT on arrival was consistent with small bowel obstruction; no free air seen to suggest perforation. #Small bowel obstruction Leukocytosis trend 14 -> 11 No other signs of bowel compromise (no tachycardia, fever, acidosis; no signs of peritonitis) Procalcitonin WNL General Surgery consult appreciated -nonoperative/conservative measures Patient was advanced to a clear liquid diet yesterday 10/19 However, this led to abdominal bloating, abdominal discomfort, and recurrence of nausea and vomiting overnight Patient also reports he stopped passing gas NG tube placement on 10/20 Potential Gastrografin study on 10/20 if continued symptoms despite NG tube placement Continue IV fluid with LR at 125mL/hr IV famotidine 20 mg daily IV pain control with acetaminophen and Dilaudid PRN IV Zofran PRN Disposition: Due to not tolerating clear liquids <, will upgrade patient from observation to full admission; continued stay on MedSurg VTE PPx: SCDs Admission and Anticipated Discharge Date Admission Date: October 18, 2024 Supervising Physician Co-Signing Physician Notes Attending Attestation - Chart reviewed, care plan d/w KADEN Cabral. I agree w/ the valentine components of his documentation. Appreciate general surgery assistance with SBO. NG tube placed today for decompression. Cont conservative Rx of SBO for now. Temo Gordon MD Subjective Mr. Masterson reports he had a rough night. He tried drinking some tea yesterday, and immediately felt like his stomach was "bloated". He then tried drinking some water last night, and this led to stomach cramping and vomiting. Patient had difficulty sleeping throughout the night as he had dry heaving and vomiting several times. While he denies stomach pain, he feels like there is stomach "discomfort" around his umbilicus which he rates a 2 out of 10. He does not believe that the famotidine has been helping. He has not been passing gas today, and has not had any additional bowel movements since yesterday. ROS: Patient endorses abdominal discomfort, and recurrence of nausea/vomiting. Patient denies fever, chills, chest pain, SOB, chest palpitations, bowel movements, or change in urinary habits. Review of Systems Review of Systems: See HPI above Physical Exam Physical Exam: General: Mild distress secondary to abdominal discomfort; patient exhibits ability to ambulate independently in the room in the hallway; non-toxic appearing; cooperative; SpO2 96% on RA HEENT: normocephalic, atraumatic; no scleral icterus; PERRLA; vision and hearing intact Neck: supple; trachea midline Skin: warm, dry without signs of tenting; no cyanosis; no rashes, bruising, lesions, or erythema noted CV: chest wall NTP; RRR; S1/S2 normal; no murmurs/rubs/gallops; pulses intact and symmetric at radial, DP, and PT Lungs: no acute respiratory distress; symmetrical chest wall expansion; clear b reath sounds across all lung van w/o adventitious sounds; no wheezing ABD: Soft; no rashes or bruising appreciable in the abdomen or flanks bilaterally; mildly TTP around the umbilicus; no rebound/guarding; no distention MSK: no tics or fasciculations; no edema noted in the LEs b/l, nonerythematous Neuro: A&Ox3; normal mood and affect; fluent speech; no focal deficits; patient reports sensation is intact and symmetric in the lower extremity bilaterally Results & Data Results & Data Vital Signs (Past 12 Hours) Vital Signs Temp Pulse Resp BP Pulse Ox O2 Del Method 10/20/24 07:35 36.6 C 76 16 130/78 96 Room Air PG Care Time/CCT Total # of Minutes Spent Total Time Spent with Patient: Total time spent is greater than 50% in coordination of care (as documented) at patient's floor/unit and/or counseling patient: C[place] [address] SUB INP/OBS CARE 2/35MIN Patient Type Established Medical Decision Making Moderate Complexity Diagnoses SBO (small bowel obstruction) K56.609
[2024-10-20 09:40] LABS: Hematocrit (blood only) 44.5 % (42.0-52.0); Hemoglobin 14.4 g/dl (14.0-18.0); Mean Corpuscular Hemoglobin 29.0 pg (25.0-34.0); Mean Corpuscular Volume 89.5 fL (80.0-100.0); Platelet Count 304 K/uL (130-400); RDW Standard Deviation 41.4 fL (36.4-46.3); Red Blood Count 4.97 M/uL (4.70-6.10); White Blood Count 9.80 K/ul (4.8-10.8)
[2024-10-20] MEDS: ACETAMINOPHEN 1,000 MG/100 ML VIAL IV STA (09:53)
[2024-10-20 09:55] LABS: Anion Gap 8.0 (3-11); Blood Urea Nitrogen 18.0 mg/dl (6-23); Calcium 8.9 mg/dl (8.6-10.3); Carbon Dioxide 29.0 mmol/L (21-32); Chloride 102.0 mmol/L (98-107); Creatinine Clr Calc Pharmacy 90.7 ml/min; Glucose 101.0 mg/dl (70-99(Fasting)); Potassium 3.8 mmol/L (3.5-5.1); Sodium 139.0 mmol/L (136-145)
--- NOTE | 2024-10-20 11:44 | XRay Report ---
KUB HISTORY: NG placement verification. COMPARISON STUDY: 10/20/2024 FINDINGS: Nasogastric tube tip is in the proximal body of the stomach. There are multiple dilated sma ll bowel loops measuring up to 5 cm diameter, grossly stable. IMPRESSION: Nasogastric tube as described. ACT 112: Negative or not required by law. The above report was generated using voice recognition software. It may contain grammatical, syntax o r spelling errors. Electronically signed by: Teodoro Cuello M.D. 10/20/2024 11:43 AM
[2024-10-20] MEDS: PANTOprazole 40 MG/10 ML SYR IV ONE (11:51)
--- NOTE | 2024-10-20 15:39 | CT Scan Report ---
ABDOMEN AND PELVIS CT WITH ORAL CONTRAST CT DOSE: 569.87 mGy.cm HISTORY: Follow-up study in a patient with reported small bowel obstruction eval SBO; oral contrast given NGT TECHNIQUE: Multiaxial CT images of the abdomen and pelvis were performed following the use of oral co ntrast. A dose lowering technique was utilized adhering to the principles of ALARA. COMPARISON STUDY: CT abdomen and pelvis 10/18/2024, KUB 10/20/2024 FINDINGS: Small right pleural effusion with mild right-sided basilar pleural thickening is new from p rior. Linear right basilar consolidation suggestive of atelectasis. Subpleural 5 mm solid pulmonary n odule on image 26 series 3 within the right lower lobe. There is no pneumatosis or pneumoperitoneum. The unenhanced spleen, pancreas and adrenal glands are unremarkable. Probable fundal adenomyomatosis of the gallbladder with possible intraluminal sludge. There are a few scattered cysts of the liver ag ain noted. Unremarkable kidneys. No urolith or hydronephrosis. Prostatomegaly. Urinary bladder wall t hickening with partial distention. Atherosclerosis of the aorta without aneurysm. No lymphadenopathy. Tiny hiatal hernia. Distal tip of enteric tube terminates within the distal gastric body. There is a persistent high grade small bowel obstruction with dilated small bowel loops measuring up to 4 cm whi ch has progressed from prior. Enteric contrast does not progress past the proximal jejunum. The large bowel is decompressed with mild colonic diverticulosis. Noninflamed appendix. The distal ileum is al so decompressed. Site of obstruction is present within the abdominal left lower quadrant, image 279 s eries 3 which may be on the basis of underlying adhesions. Interloop edema with trace ascites. Unrema rkable soft tissues. No acute fracture. IMPRESSION: 1. Progressive worsening of the persistent high-grade small bowel obstruction with transition point w ithin the abdominal left lower quadrant. 2. No pneumatosis or pneumoperitoneum. 3. Interloop edema with trace ascites. 4. Small right pleural effusion with right basilar atelectasis. ACT 112: Negative or not required by law. The above report was generated using voice recognition software. It may contain grammatical, syntax o r spelling errors. Electronically signed by: Crispin Ron M.D. 10/20/2024 3:37 PM
[2024-10-21] MEDS: PIPERACILLIN/TAZOBACTAM 4.5 GM/100 ML BAG IV ONE (06:59)
--- NOTE | 2024-10-21 08:21 | XRay Report ---
Clinical history: None provided 2 views of the abdomen were obtained No prior examination is available for comparison Findings: There are prominent air-filled small bowel loops, concerning for a distal small bowel obstruction. No renal or ureteral calculi are seen. No foreign body is evident. No osseous abnormality is seen. There is a nasogastric tube with its tip and side-port within the stomach Impression: Suspected small bowel obstruction. CT of the abdomen and pelvis could be considered for further evaluation ACT 112: Positive. There are findings on this exam that require communication between the performing entity and the patient following Patient Test Result Information Act ([place] ACT 112) guidelines. Electronically signed by Jeffrey Mullen 10-21-2024 08:20 AM
[2024-10-21] MEDS ORDERED: MIDAZOLAM HCL 1 MG/ML 2ML VIAL ONE (08:50)
[2024-10-21] MEDS ORDERED: LIDOCAINE 2% 2 ML VIAL/AMP(20MG/ML) INFIL ONE (08:51)
[2024-10-21] MEDS ORDERED: ROCURONIUM BROMIDE 10 MG/ML 5 ML VIAL IV ONE ×2 (08:51→10:25)
[2024-10-21] MEDS ORDERED: PROPOFOL IV EMULSION 10 MG/ML 20 ML VIAL IV ONE ×2 (08:51)
[2024-10-21] MEDS ORDERED: SUCCINYLCHOLINE CHLORIDE 20 MG/ML 10 ML VIAL IV ONE (08:54)
--- NOTE | 2024-10-21 09:11 | History & Physical Bridge Note ---
Date of Service October 21, 2024 History & Physical Bridge Note I have examined the patient, reviewed the History & Physical and in the interval since the performance of the History & Physical I have noted the following changes of clinical significance: Patient with fevers overnight and tachycardia and abdominal pain. Imaging shows ongoing small bowel obstruction. Given this failure of nonoperative management, plan will be for diagnostic laparoscopy, possible lysis of adhesions, possible bowel resection and all other indicated procedures. Risks of surgery were discussed with the patient and they include bleeding, infection, injury to surrounding structures, need for further procedures, anastomotic leak, and cardiopulmonary events that can occur. Alternatives include no surgery, which the patient declines. Patient wishes to proceed with surgery. All questions were answered.
--- NOTE | 2024-10-21 09:29 | Anesthesiology Consultation ---
Date of Service October 21, 2024 Assessment & Plan Chart Review Chart Review: Acceptable Risk for Surgery Consults Requested none History Surgery Operation Date: 10/21/24 09:30 Proposed Procedures p Diagnostic Laparotomy with Release of Small Bowel Obstruction and Possible Bowel Resection - Robert Jiang MD Height/Weight Height: 5 ft 10 in Weight: 74.9 kg Allergies Allergy/AdvReac Type Severity Reaction Status Date / Time No Known Drug Allergies Allergy Verified 10/17/24 10:56 Medications Home Medications Medication Instructions Recorded Confirmed Last Taken No Known Home Medications 03/03/24 10/18/24 Unknown Active Medications Generic Name Dose Route Start Last Admin Trade Name Freq PRN Reason Stop Dose Admin Lactated Ringer's 1,000 mls @ 115 mls/hr 10/18/24 11:30 10/21/24 06:34 Lr IV 10/21/24 11:29 115 mls/hr .[id number] [place] Administration Famotidine 20 mg in 5 mls @ 2.5 mls/min 10/19/24 09:00 10/20/24 09:54 Pepcid 20mg Iv Push IV 11/18/24 08:59 2.5 mls/min QAM [place] Administration Lorazepam 0.5 mg 10/20/24 18:46 10/20/24 20:42 Lorazepam 2 Mg/1 Ml Vial IV 11/19/24 18:45 0.5 mg HS PRN Administration Insomnia Ondansetron HCl 4 mg 10/18/24 13:27 10/19/24 20:55 Ondansetron Inj 2 Mg/Ml 2 Ml Vial IV 11/17/24 13:26 4 mg Q6H PRN Administration Nausea NPO Date Last Intake of Fluids: 10/18/24 Date Last Intake of Solids: 10/16/24 Past Medical History Medical History (Updated 10/19/24 @ 08:10 by Roger Calles DO) No significant past medical history Past Family History Family History Denies family history of Ovarian cancer Prostate cancer Myocardial infarction Breast cancer Lung cancer Colorectal cancer Stroke Past Surgical History Surgical History No pertinent past surgical history Social History Smoking Status: Never smoker Do You Dip or Chew Tobacco: No Hx Alcohol Use: Yes Alcohol type: beer, wine and hard liquor alcohol intake frequency: a few times a week Hx Substance Use: No Physical Exam Vital Signs Last Vital Signs Temp 37.6 C H 10/21/24 07:05 Pulse 110 H 10/21/24 07:05 Resp 16 10/21/24 07:05 BP 123/79 10/21/24 07:05 Pulse Ox 90 10/21/24 07:05 O2 Del Method Room Air 10/21/24 07:05 Testing Laboratory Results 10/20/24 09:26 10/20/24 09:26 Urine Color Yellow 10/18/24 13:26 Urine Appearance Clear (Clear) 10/18/24 13:26 Urine pH 5.5 (4.5-7.5) 10/18/24 13:26 Ur Specific Dowell > 1.045 (1.000-1.030) H 10/18/24 13:26 Urine Protein 1+ (Negative) H 10/18/24 13:26 Urine Glucose (UA) Negative (Negative) 10/18/24 13:26 Urine Ketones Trace (Negative) H 10/18/24 13:26 Urine Nitrite Negative (Negative) 10/18/24 13:26 Ur Leukocyte Esterase Negative (Negative) 10/18/24 13:26 Urine WBC (Auto) 0-5 /hpf (0-5) 10/18/24 13:26 Urine RBC (Auto) 3-5 /hpf (0-2) H 10/18/24 13:26 U Hyaline Cast (Auto) 0-2 /lpf (0-2) 10/18/24 13:26 U Epithel Cells (Auto) 0-2 /hpf (0-2) 10/18/24 13:26 Urine Bacteria (Auto) None Seen (None Seen) 10/18/24 13:26
[2024-10-21] MEDS ORDERED: ATROPINE SULFATE 0.1 MG/ML 10ML SYR IV PRN (09:32)
[2024-10-21] MEDS ORDERED: ONDANSETRON INJ 2 MG/ML 2 ML VIAL IV PRN (09:32)
[2024-10-21] MEDS ORDERED: PROMETHAZINE HCL 6.25 MG in SODIUM CHLORIDE 0.9% 50 ML IV PRN (09:32)
[2024-10-21] MEDS ORDERED: HYDROmorphone INJ 2 MG/ML SYR/VIAL IV PRN (09:32)
[2024-10-21] MEDS ORDERED: DEXAMETHASONE SOD INJ 4 MG/ML VIAL ONE (10:14)
[2024-10-21] MEDS ORDERED: ONDANSETRON INJ 2 MG/ML 2 ML VIAL ONE (10:15)
[2024-10-21] MEDS ORDERED: SUGAMMADEX SODIUM 200 MG/2 ML VIAL IV ONE (10:26)
[2024-10-21] MEDS ORDERED: HYDROmorphone INJ 1 MG/ML SYRINGE ONE (10:30)
[2024-10-21] MEDS ORDERED: PHENYLEPHRINE 100MCG/ML 5ML SYR ONE (11:03)
--- NOTE | 2024-10-21 11:15 | Hospitalist Progress Note ---
Date of Service October 21, 2024 Assessment & Plan (1) SBO (small bowel obstruction): Plan This patient is a 64-year-old male without significant PMH who presented on 10/18 for abdominal pain, nausea and vomiting. A/P CT on arrival was consistent with small bowel obstruction; no free air seen to suggest perforation. 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 I agree w/ the valentine components of his documentation. Appreciate general surgery assistance. Required exploratory laparoscopy today and 2 areas of perforation seen. Stricture was the cause of the SBO. Portion of small bowel was resected. There was gross contamination in the abdominal cavity per the op note. Temo Gordon MD Subjective Mr. Masterson is seen in the PACU postoperatively. He reports he is not currently having pain at this time. No recurrent episodes of nausea and vomiting with the NG tube last night, he reports he had minimal pain last night to keep him up. He denies feeling hot, sweaty, or feverish overnight last night. At this time, he is mainly fatigue and surgery, but does appear to be A&O x 3. ROS: Patient endorses low transverse abdominal pain. Patient denies fever, chest pain, SOB, pleuritic CP, or nausea/vomiting. Review of Systems Review of Systems: See HPI above Physical Exam Physical Exam: General: Seen in the PACU postoperatively; NG tube in place; sitting no acute distress; fatigued following surgery; non-toxic appearing; cooperative; SpO2 93% on 2L NC HEENT: normocephalic, atraumatic; no scleral icterus; PERRLA; vision and hearing intact Neck: supple; trachea midline Skin: warm, dry without signs of tenting; no cyanosis; no rashes, bruising, lesions, or erythema noted CV: chest wall NTP; RRR; S1/S2 normal; no murmurs/rubs/gallops; pulses intact and symmetric at radial, DP, and PT Lungs: no acute respiratory distress; symmetrical chest wall expansion; clear breath sounds across all lung van w/o adventitious sounds; no wheezing ABD: Soft; abdominal binder in place; surgical incision sites are newly dressed, but no active signs of drainage or infection are appreciated; abdomen is mildly TTP just below the umbilicus; no rebound/guarding; minimal distention MSK: no tics or fasciculations; no edema noted in the LEs b/l, nonerythematous Neuro: A&Ox3; normal mood and affect; fluent speech; no focal deficits; patient reports sensation is intact and symmetric in the lower extremity bilaterally Results & Data Results & Data Vital Signs (Past 12 Hours) Vital Signs Temp Pulse Resp BP Pulse Ox O2 Del Method 10/21/24 07:05 37.6 C H 110 H 16 123/79 90 Room Air PG Care Time/CCT Total # of Minutes Spent Total Time Spent with Patient: Total time spent is greater than 50% in coordination of care (as documented) at patient's floor/unit and/or counseling patient: C[place] [address] SUB INP/OBS CARE 3/50MIN Patient Type Established Medical Decision Making High Complexity Diagnoses SBO (small bowel obstruction) K56.609
[2024-10-21] MEDS ORDERED: KETOROLAC 30 MG/ML VIAL ONE (11:20)
[2024-10-21] MEDS: LIDOCAINE 1% LOCAL 20 ML VIAL ONE (11:20)
[2024-10-21] MEDS: BUPIVACAINE 0.5 % 5 MG/1 ML MPF 30ML VIAL ONE (11:20)
--- NOTE | 2024-10-21 11:57 | Post Operative Brief Note ---
PG Immediate Post Op with CF Date of Surgery October 21, 2024 Pre & Post Diagnosis Operation Date: 10/21/24 09:30 Pre-Op Diagnosis: Small Bowel Obstruction Post-Op Diagnosis: Small Bowel Obstruction, Due to stricture of unclear etiology, With dilated small bowel proximal with 2 areas of perforation, 1 more acute and 1 more chronic appearing I identified the patient and participated in the time-out.: Yes Procedure Operation Date: 10/21/24 09:30 Actual Procedures p Laparoscopic Hand Assisted Small Bowel Resection wtih Anastomosis(Not Applicable) - Robert Jiang MD Surgeon Robert Jiang MD Certified Medicine Aide Radha Penn PA-C Estimated Blood Loss 30 Findings Consistent with Post-Op Diagnosis Fluids 1100ml Specimens Specimen Description: A. Small Bowel Drains Huerta Catheter (A16 [place] Citizen huerta catheter was inserted by Jai Resendiz RN without difficulty, concentrated yellow urine obtained, output to be monitored by Anesthesia.)
--- NOTE | 2024-10-21 12:43 | Anesthesiology Progress Note ---
Date of Service October 21, 2024 Anesthesia Post Procedure Vital Signs Vital Signs: Temp Pulse Pulse Resp BP Pulse Ox O2 Del Method 10/21/24 12:30 36.9 C 94 H 15 117/74 93 Nasal Cannula 10/21/24 12:20 89 17 125/77 95 Oxymask 10/21/24 12:10 88 18 138/81 95 Oxymask 10/21/24 12:00 85 22 119/76 96 Oxymask 10/21/24 11:50 80 18 127/75 96 Oxymask 10/21/24 11:43 36.2 C L 78 18 138/83 94 Oxymask 10/21/24 07:05 37.6 C H 110 H 16 123/79 90 Room Air 10/20/24 23:06 37.1 C 76 16 137/83 94 Room Air 10/20/24 14:43 36.8 C 81 16 155/89 H 96 Room Air O2 Flow Rate 10/21/24 12:30 2 10/21/24 12:20 3 10/21/24 12:10 6 10/21/24 12:00 12 10/21/24 11:50 15 10/21/24 11:43 15 10/21/24 07:05 10/20/24 23:06 10/20/24 14:43 Pain Intensity Abdomen: Pain Intensity: 7 Transfer of Care Handoff Completed per policy Notes Mental Status: alert / awake / arousable and participated in evaluation Patient Amnestic to Procedure: Yes Nausea / Vomiting: adequately controlled Pain: adequately controlled Airway Patency, RR, SpO2: stable & adequate BP & HR: stable & adequate Hydration State: stable & adequate Anesthetic Complications: no major complications apparent
--- NOTE | 2024-10-21 12:44 | Operative Report ---
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, with an entrapment of mid terminal ileum with chronic appearing perforation proximal to this as well as acute perforation proximal to that as well I identified the patient and participated in the time-out.: Yes Procedure Operation Date: 10/21/24 09:30 Actual Procedures p Laparoscopic Hand Assisted Small Bowel Resection wtih Anastomosis(Not Applic able) - Robert Jiang MD Surgeon Robert Jiang MD Assistant Coach Radha Penn PA-C Estimated Blood Loss 30 Findings Consistent with Post-Op Diagnosis Small Bowel Obstruction With 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, with an entrapment of mid terminal ileum with chronic appearing perforation proximal to this as well as acute perforation proximal to that as well , With very dilated small bowel proximal to area of adhesive band Fluids 1200ml Specimens small bowel Drains none Anesthesia Type General Complications none Disposition Accompanied Patient To Recovery: Yes Disposition: Recovery Room Indications This is a 64-year-old male with small bowel obstruction of unclear etiology without prior surgeries, initially he was improving however yesterday, he had worsening obstructive symptoms and a nasogastric tube was placed, repeat imaging continues to show small bowel obstruction. Patient with fevers overnight and tachycardia and abdominal pain. Imaging shows ongoing small bowel obstruction. Given this failure of nonoperative management, plan will be for diagnostic laparoscopy, possible lysis of adhesions, possible bowel resection and all other indicated procedures. Risks of surgery were discussed with the patient and they include bleeding, infection, injury to surrounding structures, need for further procedures, anastomotic leak, and cardiopulmonary events that can occur. Alternatives include no surgery, which the patient declines. Patient wishes to proceed with surgery. All questions were answered. Description of Procedure Informed consent was verified and site of surgery was verified and the patient was brought back to the operating room. General anesthesia was administered. He was in the supine position. His arms were tucked bilaterally. A Tapia catheter was placed. The patient's abdomen was prepped and draped in the usual sterile fashion. A surgical timeout was performed and the no issues. Next, left upper quadrant incision was made and a Veress needle was inserted and the abdomen was insufflated to about 15 mmHg. A 0 degree laparoscope was inserted with a 5 mm trocar using the Optiview technique. The abdomen was inspected, there is no evidence of any injuries to any structures from entry into the abdominal cavity. The abdomen was examined, there was massively dilated small bowel with murky appearing free fluid in the abdomen. The 0 degree laparoscope was switched out to a 30 degree laparoscope and 3 additional 5 mm ports were placed, one was in the right upper quadrant, right lower quadrant, and left lower quadrant. The small bowel was ran proximally from the ileocecal valve and in the mid ileum, there appeared to be a transition point from nondilated small bowel to dilated small bowel with a stricture. Proximal to this, there appeared to be a chronic perforation of the small bowel without with leaking some enteric contents. Due to this, decision was made to place a HandPort in the midline to assist with further dissection, with the knowledge that the patient will likely need a resection. After placing the HandPort in the mid abdomen, the small bowel was additionally ran and there appeared to be an additional perforation that was more proximal to the chronic perforation and acute in nature. This was likely due to ongoing severe dilation of the small bowel. The small bowel was run into the ligament of Treitz and there were no other concerning findings. The small bowel did appear to have some congestion due to chronic obstruction with dilation but was not ischemic. Next, Windows were created in the mesentery proximal and distal to the 2 areas of perforation and the stricture. The small bowel was transected at these levels using the 60 mm AMAURI stapler and the LigaSure device was used to divide the mesentery. Hemostasis was checked and achieved. Care was taken to avoid injury to any other structures. Next, a [id number] functional end-to-end anastomosis was created by bringing the antimesenteric ends of the 2 portions of the small bowel and using the 80 mm AMAURI stapler to create the anastomosis and using the 60 mm AMAURI stapler to close the common enterotomy. 3-0 Vicryl was used to reinforce the staple line, take tension of the staple line, suture ligate any areas of oozing as well as close the mesenteric defect. Laparoscopically, the abdominal cavity was irrigated and suction, there were no other concerning findings, there was some chronic appearing murky fluid in the pelvis that was irrigated and suctioned as well. Next, the fascia of the HandPort was closed with 0 looped PDS and the skin of this was closed using bernice in the skin of the ports were closed using bernice. Local anesthesia was infiltrated and sterile dressing was applied and the patient was weaned off anesthesia and transferred to recovery in stable condition. He tolerated the procedure well. I attest to the content of the Intraoperative Record and any orders documented therein. Any exceptions are noted below.
[2024-10-21] MEDS: FAMOTIDINE/PF 20 MG/2 ML VIAL IV ONE (13:32)
[2024-10-21] MEDS ORDERED: PIPERACILLIN/TAZOBACTAM 4.5 GM/100 ML BAG IV SCH (13:38)
[2024-10-21] MEDS ORDERED: MoRPHine SULFATE 2 MG/ML CARP IV PRN (13:38)
[2024-10-21] MEDS ORDERED: MoRPHine SULFATE 4 MG/ML 1 ML CARP\\VIAL IV PRN (13:38)
[2024-10-21] MEDS: PIPERACILLIN/TAZOBACTAM 4.5 GM/100 ML BAG IV SCH (15:10)
[2024-10-21] MEDS: ACETAMINOPHEN 1,000 MG/100 ML VIAL IV SCH (15:10)
[2024-10-21] MEDS: LACTATED RINGER'S 1,000 ML IV SCH (15:11)
[2024-10-21] MEDS: SODIUM CHLORIDE 0.9% 1,000 ML IV SCH (15:50)
[2024-10-22] MEDS: LORazepam 0.5 MG TAB PO STA (03:44)
[2024-10-22 07:10] LABS: Hematocrit (blood only) 39.5 % (42.0-52.0); Hemoglobin 12.9 g/dl (14.0-18.0); Mean Corpuscular Hemoglobin 28.9 pg (25.0-34.0); Mean Corpuscular Volume 88.4 fL (80.0-100.0); Platelet Count 244 K/uL (130-400); RDW Standard Deviation 41.3 fL (36.4-46.3); Red Blood Count 4.47 M/uL (4.70-6.10); White Blood Count 9.72 K/ul (4.8-10.8)
[2024-10-22 07:33] LABS: Immature Granulocytes # (auto) 0.02 K/uL (0.01-0.20); Immature Granulocytes % (auto) 0.2 %
[2024-10-22] MEDS: ASCORBIC ACID 500 MG TAB PO SCH (07:35)
[2024-10-22 07:55] LABS: Anion Gap 6.0 (3-11); Blood Urea Nitrogen 14.0 mg/dl (6-23); Calcium 7.8 mg/dl (8.6-10.3); Carbon Dioxide 27.0 mmol/L (21-32); Chloride 104.0 mmol/L (98-107); Creatinine Clr Calc Pharmacy 100.1 ml/min; Glucose 128.0 mg/dl (70-99(Fasting)); Magnesium 1.6 mg/dl (1.7-2.4); Potassium 3.4 mmol/L (3.5-5.1); Sodium 137.0 mmol/L (136-145)
[2024-10-22] MEDS ORDERED: POTASSIUM PHOS 3 MMOL/1 ML INFUSION IV STA (08:22)
[2024-10-22] MEDS: MAGNESIUM SULFATE / D5W 1 GM/100 ML BAG IV ONE (08:53)
[2024-10-22] MEDS: POTASSIUM CHLORIDE / WTR 10 MEQ/100 ML PLCT IV ONE (08:53)
[2024-10-22] MEDS: ENOXAPARIN INJ 40 MG/0.4 ML SYR SQ SCH (10:36)
--- NOTE | 2024-10-22 10:50 | Surgery Progress Note ---
Date of Service October 22, 2024 Assessment & Plan (1) SBO (small bowel obstruction): Plan: Patient is POD #1 s/p Laparoscopic Hand Assisted Small Bowel Resection wtih Anastomosis with Dr. Jiang -Patient doing very well this morning. Pain controlled and patient ambulating -NGT in place, will d/c if patient starts passing gas today. Will also order a dose of Reglan -VSS, afebrile, WBC 9.7 -Voiding freely once huerta was removed -Hemodynamically stable, will start Lovenox today for chemical DVT ppx -Continue to encourage ambulation and pulm toileting -Medical management per primary team, surgery to follow closely Admission and Anticipated Discharge Date Admission Date: October 20, 2024 Subjective Patient seen and evaluated this morning, doing well and feels overall good postoperatively Pain currently well controlled NGT in place, 700cc output recorded. Huerta removed, patient voiding freely VSS, afebrile, WBC 9.7 today Physical Exam Constitutional: WD/WN, vitals as above Respiratory: normal respiratory effort, lungs clear to auscultation Cardiovascular: RRR, no murmur, no edema Gastrointestinal (Abdomen): Abdomen soft, nondistended, appropriate TTP over surgical sites. Surgical dressing in place, c/d/i. NGT in place to suction with gastric contents in canister Skin: no rashes, warm and dry Results & Data Vital Signs (Past 12 Hours) Vital Signs Temp Pulse Resp BP Pulse Ox O2 Del Method 10/22/24 07:54 36.8 C 93 H 18 119/80 94 Room Air 10/22/24 04:00 36.7 C 84 18 117/76 94 Room Air 10/21/24 23:58 36.4 C L 72 18 120/78 93 Room Air PG Care Time/CCT Total # of Minutes Spent Total Time Spent with Patient: Total time spent is greater than 50% in coordination of care (as documented) at patient's floor/unit and/or counseling patient: [place] [address] Post Operative Follow-Up Patient Type Established History Problem Focused Exam Problem Focused Medical Decision Making Straight Forward Diagnoses SBO (small bowel obstruction) K56.609
[2024-10-22] MEDS ORDERED: ACETAMINOPHEN 1,000 MG/100 ML VIAL IV STA (11:24)
[2024-10-22] MEDS: POTASSIUM PHOSPHATE 30 MMOL in SODIUM CHLORIDE 0.9% 500 ML IV ONE (11:59)
[2024-10-22] MEDS: METOCLOPRAMIDE HCL INJ 5 MG/ML 2 ML VIAL IV STA (12:36)
--- NOTE | 2024-10-22 15:56 | Hospitalist Progress Note ---
Date of Service October 22, 2024 Assessment & Plan (1) SBO (small bowel obstruction): (2) Fever: (3) Sinus tachycardia: Plan This patient is a 64-year-old male without significant PMH who presented on 10/18 for abdominal pain, nausea and vomiting. A/P CT on arrival was consistent with small bowel obstruction; no free air seen to suggest perforation. 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 KUB ordered for 10/23 #Recurrent fevers | sinus tachycardia POD #1 patient exhibited fever of 38.5 C despite being on scheduled acetaminophen CRP elevated at 25.06 on 10/22; continue to trend Chest CTA ordered to assess for pulmonary embolism A/P CT ordered to reevaluate SBO and look for infection Procalcitonin elevated at 7.29 Blood cultures ordered UA ordered COVID swab ordered Lactate WNL x 1 500 mL IV fluid bolus x 1 Will defer additional IVF boluses as patient is normotensive with a normal lactate Continue NSS at 100mL/hr Zosyn 4.5 g IV q8h Vancomycin 1000 mg IV q12h (can potentially switch to Dapto pending imaging) Transfer patient to [facility] telemetry #Hypokalemia | hypomagnesemia Replete PRN Disposition: MedSurg telemetry VTE PPx: SCDs Admission and Anticipated Discharge Date Admission Date: October 20, 2024 Supervising Physician Co-Signing Physician Notes Attending Attestation - Chart reviewed, care plan d/w KADEN Cabral. I agree w/ the valentine components of his documentation. Appreciate general surgery assistance. POD #1 s/p exploratory laparoscopy with small bowel resection. Perforation of the small bowel found. There was gross contamination ("murky appearing fluid") in the abdominal cavity per the op note. Fevers today - agree with CT chest/abd/pelvis. IV zosyn/vanco while awaiting cultures. Temo Gordon MD Subjective Mr. Masterson reports he is feeling tired today. He developed a fever earlier in the day, and received Tylenol. He did have a small bout of passing gas earlier today after NG tube was removed. No BM yet. He reports that he has no pain in his stomach at rest, but does have pain with movements in the lower quadrants b ilaterally. He does believe that Tylenol has helped with his pain so far, and he has not required anything like morphine. He tried drinking some tea earlier, and denies any recurrence of abdominal pain with this. ROS: Patient endorses fever, chills, sweating, and abdominal pain. Patient denies headache, chest pain, shortness of breath, pleuritic CP, cough, hemoptysis, sore throat, additional nausea or vomiting, or changes in urinary/bowel habits. Addendum at 1600: Nursing staff reached out as the patient had recurrence of fever despite receiving IV acetaminophen. He appeared to be tachycardic at bedside, and an EKG was taken, revealing sinus tachycardia at 117 bpm. Patient was reassessed at bedside. He did appear febrile and diaphoretic. He denied any abdominal pain at this time, but after removing the abdominal binder and palpating the left lower abdomen, he did endorse pain. He denies SOB, pleuritic CP, hemoptysis. SpO2 is 93% on RA at this time. Review of Systems Review of Systems: See HPI above Physical Exam Physical Exam: General: No acute distress; pleasant affect; patient is sitting up in bed drinking small amounts of tea; non-toxic appearing; cooperative; SpO2 93% on 2L NC HEENT: normocephalic, atraumatic; no scleral icterus; PERRLA; vision and hearing intact Neck: supple; trachea midline Skin: Mildly diaphoretic; warm, dry without signs of tenting; no cyanosis; no r ashes, bruising, lesions, or erythema noted CV: chest wall NTP; RRR; S1/S2 normal; no murmurs/rubs/gallops; pulses intact and symmetric at radial, DP, and PT Lungs: no acute respiratory distress; symmetrical chest wall expansion; clear breath sounds across all lung van w/o adventitious sounds; no wheezing ABD: Soft; abdominal binder in place/removed; surgical incision sites are newly dressed; patient exhibits signs of distention and exhibits left lower quadrant tenderness to palpation MSK: no tics or fasciculations; no edema noted in the LEs b/l, nonerythematous Neuro: A&Ox3; normal mood and affect; fluent speech; no focal deficits; patient reports sensation is intact and symmetric in the lower extremity bilaterally Results & Data Results & Data Vital Signs (Past 12 Hours) Vital Signs Temp Pulse Resp BP Pulse Ox O2 Del Method 10/22/24 15:41 37.9 C H 122 H 18 125/84 93 Room Air 10/22/24 13:15 38.5 C H 10/22/24 11:21 38 C H 10/22/24 07:54 36.8 C 93 H 18 119/80 94 Room Air 10/22/24 04:00 36.7 C 84 18 117/76 94 Room Air PG Care Time/CCT Total # of Minutes Spent Total Time Spent with Patient: Total time spent is greater than 50% in coordination of care (as documented) at patient's floor/unit and/or counseling patient: Coding [place] [address] SUB INP/OBS CARE 3/50MIN Patient Type Established Medical Decision Making High Complexity Diagnoses SBO (small bowel obstruction) K56.609 Fever R50.9 Sinus tachycardia R00.0
[2024-10-22] MEDS: METOCLOPRAMIDE HCL INJ 5 MG/ML 2 ML VIAL IV ONE (17:28)
[2024-10-22] MEDS ORDERED: VANCOMYCIN CONSULT ACTIVE PRN ×2 (17:35→17:55)
[2024-10-22 17:44] LABS: Appearance Urine Clear (Clear); Bacteria Urine Automated None Seen (None Seen); Cast Urine Automated 0-2 /lpf (0-2); Epithelial Cell Urine Auto 0-2 /hpf (0-2); Glucose Urine UA Negative (Negative); WBC Urine Automated 0-5 /hpf (0-5)
--- NOTE | 2024-10-22 17:50 | Pharmacy Report ---
Pharmacy PK ABX Note - Date of Service October 22, 2024 - Assessment and Plan 10/22/24 11:21 10/22/24 13:15 10/22/24 15:41 Temperature 38 C H 38.5 C H 37.9 C H 10/22/24 10/22/24 06:51 16:15 WBC 9.72 Creatinine 0.77 Est Cr Clr Drug Dosing 100.1 Procalcitonin 7.29 H Assessment 64 year old M POD1 Laparoscopic Hand Assisted Small Bowel Resection with Anastomosis receiving IV Zosyn, spiking fevers today, starting IV Vancomycin. Pertinent microbiologic data includes: blood cultures pending. Plan Vancomycin * Loading dose: 1750 mg IV x 1 * Maintenance dose: 1250 mg IV every 12 hours * Regimen is predicted to achieve target AUC/DOROTHY of 400-600 mg/L.hr * Trough level ordered for: 10/24/24 Zosyn 4.5g IV Q8H extended interval infusion Pharmacy will continue to follow and will adjust dose/frequency as necessary. Thank you. Pharmacy has transitioned to AUC monitoring for vancomycin. AUC/DOROTHY is the preferred PK/PD target and is associated with decreased risk of nephrotoxicity compared to traditional trough targets.
[2024-10-22] MEDS: OPTIRAY 320 125ml IV ONE (18:34)
[2024-10-22] MEDS: SODIUM CHLORIDE 0.9% 500 ML IV ONE (19:30)
[2024-10-22] MEDS: VANCOMYCIN HCL 1,750 MG in SODIUM CHLORIDE 0.9% 500 ML IV ONE (19:30)
--- NOTE | 2024-10-22 19:51 | CT Scan Report ---
HISTORY: Postoperative infection. Concern for acute pulmonary embolism. Chest pain and shortness of breath. TECHNIQUE: CT angiography of the chest was performed with contrast. Images are presented in axial, sagittal, and coronal reformats. Coronal and sagittal 3D MIP reconstructions are also provided. COMPARISON: None. FINDINGS: Lungs: Extensive airspace opacity involving the posterior right upper lobe and throughout the right lower lobe concerning for pneumonia. This is concerning for sequelae of aspiration with debris occluding the right lower lobe bronchi. Mild left basilar atelectasis. Small bilateral pleural effusions. No pneumothorax. The trachea is clear. There is debris in the dependent right mainstem bronchus, which occludes the right lower lobe bronchi. Heart/Mediastinum: Normal heart size. No pericardial effusion. Coronary artery calcifications are present. No suspicious mediastinal or hilar lymph nodes. 1.7 cm hypodense nodule in the left thyroid lobe requires evaluation with ultrasound. Vasculature: Evaluation of the segmental and subsegmental vessels is compromised by respiratory motion artifact. No large or central PE is identified. The main pulmonary artery is normal in caliber. No thoracic aortic aneurysm. Soft Tissues: Subcutaneous emphysema throughout the inferior aspect of the right chest wall. Upper Abdomen: Perihepatic ascites is noted in the upper abdomen. Bones: No acute osseous abnormality. IMPRESSION: * No evidence of acute pulmonary embolism within the limitations of respiratory motion artifact. * Evidence of aspiration pneumonia with extensive airspace opacity throughout involving the posterior right upper lobe and throughout the right lower lobe with debris noted in the right mainstem bronchus and occluding the right lower lobe bronchi. * Small bilateral pleural effusions. * 1.7 cm nodule in the left thyroid lobe. Further evaluation is recommended with nonemergent thyroid ultrasound. * Additional chronic and/or incidental findings as above. ACT 112: Positive. There are findings on this exam that require communication between the performing entity and the patient following Patient Test Result Information Act ([place] ACT 112) guidelines. Electronically signed by Catracho Coronado 10-22-2024 7:51 PM
--- NOTE | 2024-10-22 19:58 | CT Scan Report ---
HISTORY: Small bowel obstruction. Postop day 1 infection rule out. TECHNIQUE: Helical CT imaging of the abdomen and pelvis was performed with IV contrast. Images are presented in axial, sagittal, and coronal reformats. COMPARISON: CT of the abdomen pelvis dated 10/21/2024. FINDINGS: Lung Bases/Inferior Mediastinum: Right lung pneumonia. Small pleural effusions. Liver: Perihepatic ascites. Cyst within the left hepatic lobe. The liver is otherwise unremarkable. Gallbladder: Unremarkable Spleen: Unremarkable Adrenals: Unremarkable Pancreas: Unremarkable Kidneys: No hydronephrosis. Subcentimeter hypodense cortical lesions are too small to accurately characterize, but favor cysts statistically. Stomach/Bowel: Small hiatal hernia. Stomach and duodenum are unremarkable. Markedly dilated loops of small bowel throughout the abdomen with transition point at a surgical anastomosis in the right pelvis on series 5 image 75. Findings are consistent with small bowel obstruction.Dilated loops of small bowel measuring up to 4.8 cm in diameter. The colon is decompressed. The terminal ileum appears decompressed. Small locules of free intraperitoneal air scattered in the abdomen. Lymph nodes: Unremarkable Vasculature: Mild atherosclerotic vascular disease. Pelvis: Moderate volume of nonspecific free fluid in the pelvis may be reactive. Urinary bladder is unremarkable. Enlarged prostate Measuring 5.5 cm in diameter. Recommend correlation with serum PSA. Soft Tissues: Midline ventral abdominal wall postsurgical changes with minimal fluid and inflammation. No well-developed fluid collection or abscess. Subcutaneous emphysema along the right flank is likely postsurgical. Bones: No acute osseous abnormality. Partially fused sacroiliac joints. Mild degenerative changes of the spine. IMPRESSION: * Postsurgical changes of bowel resection. Dilated fluid-filled loops of small bowel measuring up to 4.8 cm in diameter with transition point at the surgical anastomosis in the right pelvis. Findings consistent with high-grade distal small bowel obstruction. * Moderate free fluid/ascites in the abdomen is likely reactive. Small locules of free intraperitoneal air are nonspecific a, but likely postsurgical in the setting of recent intra-abdominal surgery. Bowel perforation cannot be excluded. * Right right lower lung pneumonia/aspiration. Small pleural effusions. * Enlarged prostate. Recommend correlation with serum PSA. * Numerous chronic and/or incidental findings as detailed above. ACT 112: Positive. There are findings on this exam that require communication between the performing entity and the patient following Patient Test Result Information Act ([place] ACT 112) guidelines. Electronically signed by Catracho Coronado 10-22-2024 7:57 PM
--- NOTE | 2024-10-22 20:13 | Communication Note ---
<Statement entered by Robert Jiang MD - 10/23/24 11:57> I also saw patient again earlier in the day and I agree with the assessment and plan of care. Repeat CAT scan of abdomen and pelvis did show contrast into the colon with postoperative changes that would be expected with some dilation of small bowel but given the contrast within the colon as well as patient's exam, I do not suspect complete obstruction. CT did show pneumonia however. Will be treating that. Date of Service: October 22, 2024 This patient was signed out to me by our dayshift team. This patient had a small bowel obstruction requiring operative intervention on 10/21/2024. Patient was noted be doing well postop day #1 and therefore had his diet advanced. The surgical team was notified that the patient was running fevers and appeared tachycardic thus prompting further evaluation. Medical service obtained a lactic acid level which was noted to be normal at 1.5. They also obtained a CT scan of the abdomen and pelvis as well as a CT scan of the chest. The abdominal CT scan showed dilated small bowel with findings concerning for high-grade small bowel obstruction. CT scan of the chest was negative for pulmonary emboli but did show concern for right sided aspiration pneumonia. The medical service has transferred the patient to a monitored floor. They have also ensured he is on broad-spectrum antibiotics in the form of Zosyn and vancomycin. I revisited with the patient at the bedside and his abdomen is slightly distended and has expected tenderness. The patient notes that he has not had any nausea or vomiting since his surgery. His did note however that he was throwing up prior to his operation. Is possible that the patient may have had an aspiration event prior to surgical intervention. Nonetheless, we will keep the patient n.p.o. for the remainder of this evening and continue with broad-spectrum antibiotics as noted above. I did discuss with the patient that if he has any further nausea or vomiting he may require replacement of his NG tube and he expresses understanding. Will continue to monitor closely.
[2024-10-22 22:12] LABS: Chlamydia pneumoniae PCR Not Detected (NotDetected); Coronavirus 229E PCR Not Detected (NotDetected); Coronavirus CoV-2 (COVID19)PCR Not Detected (NotDetected); Coronavirus HKU1 PCR Not Detected (NotDetected); Coronavirus NL63 PCR Not Detected (NotDetected); Coronavirus OC43PCR Not Detected (NotDetected); Human Metapneumovirus PCR Not Detected (NotDetected); Parainfluenza Virus 1 PCR Not Detected (NotDetected); Parainfluenza Virus 2 PCR Not Detected (NotDetected); Parainfluenza Virus 3 PCR Not Detected (NotDetected); Parainfluenza Virus 4 PCR Not Detected (NotDetected); Respiratory Syncytial VirusPCR Not Detected (NotDetected); Rhinovirus/Enterovirus PCR Not Detected (NotDetected)
[2024-10-23] MEDS ORDERED: VANCOMYCIN HCL 1,000 MG in SODIUM CHLORIDE 0.9% 250 ML IV SCH (06:00)
[2024-10-23] MEDS: VANCOMYCIN HCL 1,250 MG in SODIUM CHLORIDE 0.9% 250 ML IV SCH (06:14)
[2024-10-23 08:04] LABS: Hematocrit (blood only) 37.0 % (42.0-52.0); Hemoglobin 12.0 g/dl (14.0-18.0); Immature Granulocytes # (auto) 0.04 K/uL (0.01-0.20); Immature Granulocytes % (auto) 0.4 %; Mean Corpuscular Hemoglobin 28.8 pg (25.0-34.0); Mean Corpuscular Volume 88.9 fL (80.0-100.0); Platelet Count 220 K/uL (130-400); RDW Standard Deviation 42.8 fL (36.4-46.3); Red Blood Count 4.16 M/uL (4.70-6.10); White Blood Count 10.61 K/ul (4.8-10.8)
[2024-10-23 08:35] LABS: Anion Gap 8.0 (3-11); Blood Urea Nitrogen 9.0 mg/dl (6-23); Calcium 7.7 mg/dl (8.6-10.3); Carbon Dioxide 21.0 mmol/L (21-32); Chloride 107.0 mmol/L (98-107); Creatinine Clr Calc Pharmacy 116.8 ml/min; Glucose 100.0 mg/dl (70-99(Fasting)); Magnesium 2.0 mg/dl (1.7-2.4); Potassium 3.5 mmol/L (3.5-5.1); Sodium 136.0 mmol/L (136-145)
[2024-10-23] MEDS ORDERED: POTASSIUM PHOS 3 MMOL/1 ML INFUSION IV STA (08:52)
[2024-10-23] MEDS: POTASSIUM PHOSPHATE 30 MMOL in SODIUM CHLORIDE 0.9% 500 ML IV ONE (10:00)
--- NOTE | 2024-10-23 10:57 | Hospitalist Progress Note ---
Date of Service October 23, 2024 Assessment & Plan (1) SBO (small bowel obstruction): (2) Fever: (3) Sinus tachycardia: Plan This patient is a 64-year-old male without significant PMH who presented on 10/18 for abdominal pain, nausea and vomiting. A/P CT on arrival was consistent with small bowel obstruction; no free air seen to suggest perforation. #Small bowel obstruction General Surgery consult appreciated - s/p Laparoscopic hand assisted small bowel resection with anastomosis with Dr. Jiang 10/21 Febrile POD 1 - CT a/p concerning for SBO. CTA chest - negative for PE, concerning for aspiration pneumonia 10/23 - IV fluids d/c'ed, advanced to clear liquid diet per surgery IV famotidine 20 mg daily Pain control: acetaminophen scheduled and Dilaudid PRN PT/OT #Recurrent fevers | sinus tachycardia | Aspiration pneumonia POD #1 patient exhibited fever of 38.5 C despite being on scheduled acetaminophen. Received 500cc IVF, lactate WNL. Chest CTA with concerns for aspiration PNA. Procalcitonin elevated at 7.29. UA without signs of infection. Biofire negative. Started on vanc and zosyn - will continue for now, if continues to improve can likely deescalate CRP elevated at 25.06 --> 30.28, continue to trend Blood cultures: pending IS #Hypokalemia | hypomagnesemia Replete PRN Disposition: continued inpatient stay, advancing diet, PT/OT evals VTE PPx: SCDs Admission and Anticipated Discharge Date Admission Date: October 20, 2024 Supervising Physician Co-Signing Physician Notes Attending Attestation - Chart reviewed, care plan d/w KADEN Marcial. I agree w/ the valentine components of h34 documentation. Appreciate general surgery assistance. POD #2 s/p exploratory laparoscopy with small bowel resection. Perforation of the small bowel found. There was gross contamination ("murky appearing fluid") in the abdominal cavity per the op note. Had fevers on POD #1 - CT chest/abd/pelvis showing RUL/RLL along with "debris" in the right mainstem bronchus & RLL bronchi. Cont IV zosyn/vanco. Temo Gordon MD Subjective patient seen lying in bed, present at bedside reports that he is feeling alittle better than yesterday pain more controlled when he is not moving did have a formed bowel movement yesterday on room air Tele - SR/ST 100s Review of Systems Review of Systems: All systems reviewed & are unremarkable except as noted in Subjective Physical Exam Physical Exam: General: NAD, VS as above Resp: normal respiratory effort, lungs diminished in the bases CV: RRR, no murmur, Abd: hypoactive bowel sounds, abdominal dressing c/d/i - tender to palpation Extremities: Moves all extremities, Neuro: A&O x3, Skin: intact, no lesions noted Results & Data Results & Data Vital Signs (Past 12 Hours) Vital Signs Temp Pulse Pulse Resp BP Pulse Ox O2 Del Method 10/23/24 08:21 98.6 F 95 H 20 135/88 93 Room Air 10/23/24 07:24 103 H 10/23/24 02:31 98.2 F 103 H 20 131/88 91 Room Air 10/22/24 23:30 98.1 F 101 H 18 133/85 94 Room Air Laboratory Results cbc, chemistry and CRP reviewed mag and phos reviewed Diagnostic Findings CT a/p reviewed Trevon CTA reviewed PG Care Time/CCT Total # of Minutes Spent Total Time Spent with Patient: Total time spent is greater than 50% in coordination of care (as documented) at patient's floor/unit and/or counseling patient: Coding Level of Care Code 25313 SUB INP/OBS CARE 3/50MIN Diagnoses SBO (small bowel obstruction) K56.609 Fever R50.9 Sinus tachycardia R00.0
[2024-10-23] MEDS: METOCLOPRAMIDE HCL INJ 5 MG/ML 2 ML VIAL IV STA (10:58)
--- NOTE | 2024-10-23 12:13 | Surgery Progress Note ---
Date of Service October 23, 2024 Assessment & Plan (1) SBO (small bowel obstruction): Plan: Patient is POD #2 s/p Laparoscopic Hand Assisted Small Bowel Resection with Anastomosis with Dr. Jiang -Patient doing ok this morning. Pain seems to be controlled -Last evening became febrile and repeat imaging was obtained. CT chest concerning for pneumonia, patient started on Vanco and Zosyn, continued for now. -NGT removed yesterday and he was started on clear liquids, he is tolerating without any issues. Patient would like to try something more today, will advance to full liquids. -Continue Lovenox today for chemical DVT ppx -Continue to encourage ambulation and aggressive pulm toileting -Medical management per primary team, surgery to follow closely Admission and Anticipated Discharge Date Admission Date: October 20, 2024 Subjective -Patient seen and examined this morning, states he is feeling ok compared to last evening. -To note, the patient was running fevers and was tachycardic last evening, patient underwent CT imaging of his chest, abdomen pelvis. CT of his abdomen with results showing dilated small bowel with findings concerning for high-grade small bowel obstruction. CT scan of the chest was negative for pulmonary emboli but did show concern for right sided aspiration pneumonia. -Medical team has started the patient on started on vanc and zosyn for coverage -Patient from an abdominal standpoint is passing gas and states he had a bowel movement this morning, he denies N/V or worsening abdominal pain after having some clear liquids Physical Exam Constitutional: WD/WN, vitals as above Respiratory: normal respiratory effort, lungs clear to auscultation Cardiovascular: RRR, no murmur, no edema Gastrointestinal (Abdomen): Abdomen soft, nondistended, appropriate TTP over surgical sites. Surgical dressing was taken down at bedside, bernice in place, c/d/i without any signs of infection Skin: no rashes, warm and dry Results & Data Vital Signs (Past 12 Hours) Vital Signs Temp Pulse Pulse Resp BP BP Pulse Ox 10/23/24 11:30 37.6 C H 86 18 148/91 H 94 10/23/24 08:21 37.0 C 95 H 20 135/88 93 10/23/24 07:24 103 H 10/23/24 02:31 36.8 C 103 H 20 131/88 91 O2 Del Method 10/23/24 11:30 Room Air 10/23/24 08:21 Room Air 10/23/24 07:24 10/23/24 02:31 Room Air PG Care Time/CCT Total # of Minutes Spent Total Time Spent with Patient: Total time spent is greater than 50% in coordination of care (as documented) at patient's floor/unit and/or counseling patient: Coding [place] [address] Post Operative Follow-Up Patient Type Established History Problem Focused Exam Problem Focused Medical Decision Making Straight Forward Diagnoses SBO (small bowel obstruction) K56.609
[2024-10-23] MEDS: IBUPROFEN 600 MG TAB PO STA (15:36)
[2024-10-24 05:59] LABS: Hematocrit (blood only) 36.4 % (42.0-52.0); Hemoglobin 12.0 g/dl (14.0-18.0); Mean Corpuscular Hemoglobin 29.3 pg (25.0-34.0); Mean Corpuscular Volume 89.0 fL (80.0-100.0); Platelet Count 253 K/uL (130-400); RDW Standard Deviation 41.8 fL (36.4-46.3); Red Blood Count 4.09 M/uL (4.70-6.10); White Blood Count 9.41 K/ul (4.8-10.8)
[2024-10-24] MEDS: VANCOMYCIN LEVEL ONE (06:00)
[2024-10-24 06:15] LABS: Anion Gap 8.0 (3-11); Blood Urea Nitrogen 10.0 mg/dl (6-23); Calcium 7.8 mg/dl (8.6-10.3); Carbon Dioxide 23.0 mmol/L (21-32); Chloride 104.0 mmol/L (98-107); Creatinine Clr Calc Pharmacy 116.8 ml/min; Glucose 98.0 mg/dl (70-99(Fasting)); Magnesium 2.0 mg/dl (1.7-2.4); Potassium 3.7 mmol/L (3.5-5.1); Sodium 135.0 mmol/L (136-145)
[2024-10-24] MEDS ORDERED: SODIUM PHOSPHATE 3 MMOL/1 ML INFUSION IV STA (08:56)
--- NOTE | 2024-10-24 09:02 | Pharmacy Report ---
Pharmacy PK ABX Note - Date of Service October 24, 2024 - Assessment and Plan Vital Signs Temp Pulse Pulse Resp BP BP Pulse Ox 10/24/24 08:22 97 H 10/24/24 07:22 36.6 C 97 H 18 144/90 H 92 10/24/24 02:48 37 C 86 16 151/93 H 91 10/23/24 22:55 36.5 C 84 16 148/92 H 94 10/23/24 21:40 92 H 10/23/24 19:09 36.9 C 89 18 144/92 H 94 10/23/24 16:37 37.9 C H 91 H 20 128/84 94 10/23/24 14:34 98 H 10/23/24 13:19 37.4 C 10/23/24 11:30 37.6 C H 86 18 148/91 H 94 Laboratory Tests (24 Hours) 10/24/24 05:42 WBC 9.41 Creatinine 0.66 Est Cr Clr Drug Dosing 116.8 C-Reactive Protein 26.96 H Random Vancomycin 5.5 L Microbiology 10/22/24 16:15 Aerobic Blood Culture - Preliminary Blood No growth in Aerobic bottle after 24 hours. Anaerobic Blood Culture - Preliminary No growth in Anaerobic bottle after 24 hours. 10/22/24 16:43 Aerobic Blood Culture - Preliminary Blood No growth in Aerobic bottle after 24 hours. Anaerobic Blood Culture - Preliminary No growth in Anaerobic bottle after 24 hours. Assessment 64 year old M POD3 Laparoscopic Hand Assisted Small Bowel Resection with Anastomosis receiving IV Zosyn, Vancomycin. Pertinent microbiologic data includes: NGTD. Plan Vancomycin * Current maintenance dose: 1250mg IV every 12 hours * This regimen is subtherapeutic based on level of 5.5 this morning * New maintenance regimen: 1750mg IV every 12 hours * Regimen is predicted to achieve target AUC/DOROTHY of 400-600 mg/L.hr * Trough level ordered for: 10/26/2024 0500 Zosyn 4.5g IV Q8H extended interval infusion Pharmacy will continue to follow and will adjust dose/frequency as necessary. Thank you. Pharmacy has transitioned to AUC monitoring for vancomycin. AUC/DOROTHY is the pref erred PK/PD target and is associated with decreased risk of nephrotoxicity compared to traditional trough targets.
--- NOTE | 2024-10-24 10:08 | Surgery Progress Note ---
Date of Service October 24, 2024 Assessment & Plan (1) SBO (small bowel obstruction): Plan: POD#3 s/p Laparoscopic Hand Assisted Small Bowel Resection with Anastomosis with Dr. Jiang WBC 9.4 Vitals stable, last temp was 100.2F at 4pm yesterday and has been afe brile since He is burping some this AM, but denies n/v. He is passing some flatus along with what he describes as loose stools He does seem a little tender to palpation with mild distention & not super hungry; for now i will continue on fulls...if he is feeling well later could consider low fiber He is on IV abx for concern for pneumonia, patient started on Vanco and Zosyn On Lovenox for chemical DVT ppx Continue to encourage ambulation and aggressive pulm toileting Medical management per primary team, surgery to follow closely Admission and Anticipated Discharge Date Admission Date: October 20, 2024 Subjective Patient doing okay. Some burping noted. His pain is tolerable but has some mostly with getting up and moving around. Passing small amounts of ismael but passing frequent loose stools. No n/v. Denies worsening symptoms with taking in fulls but reports he is not super hungry. Physical Exam Physical Exam: awake/alert, no distress Gastrointestinal (Abdomen): Inspection/Auscultation: + abdomen distended (mild) and + abdominal surgical incision (c/d/i midline incision w/ some bruising ) Percussion/Palpation: + abdomen tender (ron incisional discomfort ) Results & Data Vital Signs (Past 12 Hours) Vital Signs Temp Pulse Pulse Resp BP Pulse Ox O2 Del Method 10/24/24 08:22 97 H 10/24/24 07:22 97.9 F 97 H 18 144/90 H 92 Room Air 10/24/24 02:48 98.6 F 86 16 151/93 H 91 Room Air 10/23/24 22:55 97.7 F 84 16 148/92 H 94 Room Air PG Care Time/CCT Total # of Minutes Spent Total Time Spent with Patient: Total time spent is greater than 50% in coordination of care (as documented) at patient's floor/unit and/or counseling patient: Coding Level of Care Code 65010 Post Operative Follow-Up Diagnoses SBO (small bowel obstruction) K56.609
[2024-10-24] MEDS: SODIUM PHOSPHATE 30 MMOL in SODIUM CHLORIDE 0.9% 500 ML IV ONE (10:56)
[2024-10-24] MEDS: ACETAMINOPHEN 1,000 MG/100 ML VIAL IV SCH (12:36)
[2024-10-24] MEDS: ACETAMINOPHEN 1000 MG/100 ML IV IV ONE (12:36)
[2024-10-24] MEDS: METOCLOPRAMIDE HCL INJ 5 MG/ML 2 ML VIAL IV STA (12:36)
--- NOTE | 2024-10-24 12:52 | Hospitalist Progress Note ---
Date of Service October 24, 2024 Assessment & Plan (1) SBO (small bowel obstruction): (2) Fever: (3) Sinus tachycardia: (4) Aspiration pneumonia: Plan This patient is a 64-year-old male without significant PMH who presented on 10/18 for abdominal pain, nausea and vomiting. A/P CT on arrival was consistent with small bowel obstruction; no free air seen to suggest perforation. #Small bowel obstruction General Surgery consult appreciated - s/p Laparoscopic hand assisted small bowel resection with anastomosis with Dr. Jiang 10/21 Febrile POD 1 - CT a/p concerning for SBO. CTA chest - negative for PE, concerning for aspiration pneumonia 9 - IV fluids d/c'ed, advanced to clear liquid diet per surgery IV famotidine 20 mg daily Pain control: acetaminophen scheduled and Dilaudid PRN PT/OT - rec return home #Recurrent fevers | sinus tachycardia | Aspiration pneumonia POD #1 patient exhibited fever of 38.5 C despite being on scheduled acetaminophen. Received 500cc IVF, lactate WNL. Chest CTA with concerns for aspiration PNA. Procalcitonin elevated at 7.29. UA without signs of infection. Biofire negative. Started on vanc and zosyn - will continue for now, if continues to improve can likely deescalate CRP now slightly downtrending, continue to trend Blood cultures: 24 hours IS last fever 1600 yesterday, but on scheduled tylenol - continue to monitor fever curve. ? peritonitis contributing as on room air, no cough from possible aspiration PNA #Hypokalemia | hypomagnesemia Replete PRN Disposition: continued inpatient stay, advancing diet, monitoring fever curve VTE PPx: SCDs Admission and Anticipated Discharge Date Admission Date: October 20, 2024 Supervising Physician Co-Signing Physician Notes Attending Attestation - Chart reviewed, care plan d/w KADEN Marcial. I agree w/ the valentine components of her documentation. Appreciate general surgery assistance. POD #3 s/p exploratory laparoscopy with small bowel resection. Perforation of the small bowel found. There was gross contamination ("murky appearing fluid") in the abdominal cavity per the op note. Had fevers on POD #1 - CT chest/abd/pelvis obtained --> showed RUL/RLL pneumonia along with "debris" in the right mainstem bronchus & RLL bronchi. Cont IV zosyn/vanco. Cont supportive care. Temo Siuta MD Subjective Patient seen lying in bed, reports feeling better did have multiple loose stools overnight no fevers since 4pm but reports starting to feel chills again pain controlled at rest, but worse when he stands up says he has been using his incentive spirometer Review of Systems Review of Systems: All systems reviewed & are unremarkable except as noted in Subjective Physical Exam Physical Exam: General: NAD, VS as above Resp: normal respiratory effort, lungs diminished in the bases CV: RRR, no murmur, Abd: normal bowel sounds, abdominal binder in place, mild tenderness Extremities: Moves all extremities, Neuro: A&O x3, Skin: intact, no lesions noted Results & Data Results & Data Vital Signs (Past 12 Hours) Vital Signs Temp Pulse Pulse Resp BP Pulse Ox O2 Del Method 10/24/24 11:31 99.3 F 98 H 18 146/92 H 91 Room Air 10/24/24 10:22 Room Air 10/24/24 08:22 97 H 10/24/24 07:22 97.9 F 97 H 18 144/90 H 92 Room Air 10/24/24 02:48 98.6 F 86 16 151/93 H 91 Room Air Laboratory Results cbc, chemistry, crp, mag and phos reviewed PG Care Time/CCT Total # of Minutes Spent Total Time Spent with Patient: Total time spent is greater than 50% in coordination of care (as documented) at patient's floor/unit and/or counseling patient: Coding Level of Care Code 40456 SUB INP/OBS CARE 2/35MIN Diagnoses SBO (small bowel obstruction) K56.609 Fever R50.9 Sinus tachycardia R00.0 Aspiration pneumonia J69.0
[2024-10-24] MEDS ORDERED: ACETAMINOPHEN 500 MG TAB PO PRN (14:00)
[2024-10-24] MEDS: VANCOMYCIN HCL 1,750 MG in SODIUM CHLORIDE 0.9% 500 ML IV SCH (17:59)
[2024-10-24] MEDS ORDERED: PROCHLORPERAZINE 5 MG in SYRINGE 4 ML IV PRN (20:19)
[2024-10-25 07:11] LABS: Hematocrit (blood only) 35.1 % (42.0-52.0); Hemoglobin 11.6 g/dl (14.0-18.0); Mean Corpuscular Hemoglobin 29.1 pg (25.0-34.0); Mean Corpuscular Volume 88.0 fL (80.0-100.0); Platelet Count 272 K/uL (130-400); RDW Standard Deviation 41.1 fL (36.4-46.3); Red Blood Count 3.99 M/uL (4.70-6.10); White Blood Count 9.72 K/ul (4.8-10.8)
[2024-10-25 07:39] LABS: Alanine Aminotransferase 8.0 U/L (7-52); Albumin Globulin Ratio 1.0 (0.9-2); Alkaline Phosphatase 48.0 U/L (34-104); Anion Gap 8.0 (3-11); Bilirubin,Total 0.7 mg/dl (0.2-1.0); Blood Urea Nitrogen 10.0 mg/dl (6-23); Calcium 7.7 mg/dl (8.6-10.3); Carbon Dioxide 24.0 mmol/L (21-32); Chloride 105.0 mmol/L (98-107); Creatinine Clr Calc Pharmacy 137.6 ml/min; Globulin 2.6 gm/dl (2.5-4.0); Glucose 101.0 mg/dl (70-99(Fasting)); Potassium 3.2 mmol/L (3.5-5.1); Sodium 137.0 mmol/L (136-145); Total Protein 5.3 gm/dl (6.0-8.3)
[2024-10-25] MEDS: POTASSIUM CHLORIDE CRTAB 20 MEQ TABCR PO STA ×2 (08:55→10:05)
--- NOTE | 2024-10-25 10:25 | XRay Report ---
XR chest 1V portable CLINICAL HISTORY: aspiration pneumonia COMPARISON STUDY: 10/22/2024 FINDINGS: Stable cardiomegaly with pulmonary vascular congestion. Stable small bilateral pleural effu sions and adjacent lung base consolidation, right greater than left. No pneumothorax. IMPRESSION: Stable exam. ACT 112: Negative or not required by law. Electronically signed by: Teodoro Cuello M.D. 10/25/2024 10:24 AM
--- NOTE | 2024-10-25 11:23 | Surgery Progress Note ---
Date of Service October 25, 2024 Assessment & Plan (1) SBO (small bowel obstruction): Plan: POD#4 s/p Laparoscopic Hand Assisted Small Bowel Resection with Anastomosis with Dr. Jiang WBC 9.7 , Vitals stable, no fevers Pt with n/v overnight, but improved this AM. He continues to have + bowel function, will try low fiber Pt does not need to wear abdominal binder anymore at this point He is on IV abx for concern for pneumonia, patient started on Vanco and Zosyn On Lovenox for chemical DVT ppx Continue to encourage ambulation and aggressive pulm toileting Medical management per primary team, surgery to follow closely Possible dispo tomorrow pending medicine clearance Admission and Anticipated Discharge Date Admission Date: October 20, 2024 Subjective Patient feeling better this AM. Had some nausea/vomiting overnight. Pain controlled this AM. + bowel function. does not want to wear abdominal binder Physical Exam Physical Exam: awake/alert, no distress Gastrointestinal (Abdomen): Inspection/Auscultation: + abdominal surgical incision (c/d/i midline incision w/ some bruising ) Percussion/Palpation: + abdomen tender (ron incisional discomfort , mild) Results & Data Vital Signs (Past 12 Hours) Vital Signs Temp Pulse Pulse Resp BP BP Pulse Ox 10/25/24 08:08 98.2 F 83 20 139/92 93 10/25/24 08:01 109 H 128/87 144/104 H 92 10/25/24 06:45 87 10/25/24 03:36 97.9 F 79 18 148/90 H 94 10/25/24 00:51 98.4 F 83 20 142/89 H 93 O2 Del Method 10/25/24 08:08 Room Air 10/25/24 08:01 Room Air 10/25/24 06:45 10/25/24 03:36 Room Air 10/25/24 00:51 Room Air PG Care Time/CCT Total # of Minutes Spent Total Time Spent with Patient: Total time spent is greater than 50% in coordination of care (as documented) at patient's floor/unit and/or counseling patient: Coding Level of Care Code 54880 Post Operative Follow-Up Diagnoses SBO (small bowel obstruction) K56.609
--- NOTE | 2024-10-25 13:06 | Hospitalist Progress Note ---
"Date of Service October 25, 2024 Assessment & Plan (1) SBO (small bowel obstruction): (2) Fever: (3) Sinus tachycardia: (4) Aspiration pneumonia: Plan This patient is a 64-year-old male without significant PMH who presented on 10/18 for abdominal pain, nausea and vomiting. A/P CT on arrival was consistent with small bowel obstruction; no free air seen to suggest perforation. #Small bowel obstruction/ Sepsis, POA, due to peritonitis associated with perforated SBO General Surgery consult appreciated - s/p Laparoscopic hand assisted small bowel resection with anastomosis with Dr. Jiang 10/21 --> recommended to advance low fiber diet Febrile POD 1 - CT a/p concerning for SBO. CTA chest - negative for PE, concerning for aspiration pneumonia repeat CXR 10/25: negative. IV famotidine 20 mg daily; Zofran prn for N/V. Pain control: acetaminophen scheduled and Dilaudid PRN PT/OT - rec return home #Recurrent fevers | sinus tachycardia | Aspiration pneumonia POD #1 patient exhibited fever of 38.5 C despite being on scheduled acetaminophen. Received 500cc IVF, lactate WNL. Chest CTA with concerns for aspiration PNA. Procalcitonin elevated at 7.29. UA without signs of infection. Biofire negative. Vancomycin discontinued; Continue IV Zosyn through 10/26. CRP downtrending 19.09, continue to trend Blood cultures neg at 48 hours. Has been febrile free for ~48 hours; switch Tylenol to prn. IS #Hypokalemia | hypomagnesemia K low at 3.2 s/p repletion VTE PPx: SCDs Code: full Admission and Anticipated Discharge Date Admission Date: October 20, 2024 Supervising Physician Co-Signing Physician Notes The patient was not seen by me. The chart was reviewed. Case discussed with KADEN Yanez. Agree with assessment and plan Subjective Akhil was seen & examined this morning. He was walking the halls with his son. He reports no abdominal pain. Reports he has been moving his bowels. States he did have emesis yesterday but feels well today. Physical Exam Constitutional: WD/WN, vitals as above Eyes: PERRL, conjunctivae normal, anicteric sclerae Respiratory: normal respiratory effort, lungs clear to auscultation Cardiovascular: RRR, no murmur, no edema Skin: no rashes, warm and dry Neurologic: PERRL, EOMI, accommodation nl, no face palsy, no dysarthria Psychiatric: A+Ox3, euthymic affect Results & Data Results & Data Vital Signs (Past 12 Hours) Vital Signs Temp Pulse Pulse Resp BP BP Pulse Ox 10/25/24 11:37 36.7 C 96 H 20 139/91 96 10/25/24 08:55 10/25/24 08:08 36.8 C 83 20 139/92 93 10/25/24 08:01 109 H 128/87 144/104 H 92 10/25/24 06:45 87 10/25/24 03:36 36.6 C 79 18 148/90 H 94 O2 Del Method 10/25/24 11:37 Room Air 10/25/24 08:55 Room Air 10/25/24 08:08 Room Air 10/25/24 08:01 Room Air 10/25/24 06:45 10/25/24 03:36 Room Air PG Care Time/CCT Total # of Minutes Spent Total Time Spent with Patient: Total time spent is greater than 50% in coordination of care (as documented) at patient's floor/unit and/or counseling patient: Coding Level of Care Code 04779 SUB INP/OBS CARE 2/35MIN Diagnoses SBO (small bowel obstruction) K56.609 Fever R50.9 Sinus tachycardia R00.0 Aspiration pneumonia J69.0"
[2024-10-25] MEDS ORDERED: KETOROLAC TROMETHAMINE 15 MG/ML VIAL IV PRN (14:38)
[2024-10-25] MEDS: ACETAMINOPHEN 500 MG TAB PO PRN (21:45)
[2024-10-26] MEDS ORDERED: VANCOMYCIN LEVEL ONE (05:00)
[2024-10-26 06:26] LABS: Hematocrit (blood only) 35.9 % (42.0-52.0); Hemoglobin 11.8 g/dl (14.0-18.0); Immature Granulocytes # (auto) 0.13 K/uL (0.01-0.20); Immature Granulocytes % (auto) 1.4 %; Mean Corpuscular Hemoglobin 28.9 pg (25.0-34.0); Mean Corpuscular Volume 88.0 fL (80.0-100.0); Platelet Count 330 K/uL (130-400); RDW Standard Deviation 40.7 fL (36.4-46.3); Red Blood Count 4.08 M/uL (4.70-6.10); White Blood Count 9.48 K/ul (4.8-10.8)
[2024-10-26 06:52] LABS: Anion Gap 7.0 (3-11); Blood Urea Nitrogen 9.0 mg/dl (6-23); Calcium 7.9 mg/dl (8.6-10.3); Carbon Dioxide 26.0 mmol/L (21-32); Chloride 102.0 mmol/L (98-107); Creatinine Clr Calc Pharmacy 126.3 ml/min; Glucose 100.0 mg/dl (70-99(Fasting)); Potassium 3.3 mmol/L (3.5-5.1); Sodium 135.0 mmol/L (136-145)
[2024-10-26 07:40] VITALS: RESP 18; O2SAT 91
[2024-10-26] MEDS ORDERED: POTASSIUM PHOS 3 MMOL/1 ML INFUSION IV STA (07:51)
[2024-10-26] MEDS: POTASSIUM PHOSPHATE 6 MMOL in SODIUM CHLORIDE 0.9% 250 ML IV ONE (08:40)
--- NOTE | 2024-10-26 10:08 | Discharge Summary ---
"Discharge Summary Date of Service October 26, 2024 Principal Dx & Hospital Course #1 = Principal Diagnosis (1) SBO (small bowel obstruction): (2) Fever: (3) Sinus tachycardia: (4) Aspiration pneumonia: Plan This patient is a 64-year-old male without significant PMH who presented on 10/18 for abdominal pain, nausea and vomiting. A/P CT on arrival was consistent with small bowel obstruction; no free air seen to suggest perforation. #Small bowel obstruction/ Sepsis, POA, due to peritonitis associated with perforated SBO General Surgery consult appreciated - s/p Laparoscopic hand assisted small bowel resection with anastomosis with Dr. Jiang 10/21 --> recommended to advance low fiber diet Febrile POD 1 - CT a/p concerning for SBO. CTA chest - negative for PE, concerning for aspiration pneumonia repeat CXR 10/25: negative for pneumonia. Pain control: Tylenol prn on dc. PT/OT - rec return home #Recurrent fevers | sinus tachycardia | Aspiration pneumonia POD #1 patient exhibited fever of 38.5 C despite being on scheduled acetaminophen. Lactate WNL. Chest CTA with concerns for aspiration PNA. Procalcitonin elevated at 7.29. UA without signs of infection. Biofire negative. Vancomycin discontinued; Continue IV Zosyn through 10/26. CRP downtrending 19.09, continue to trend Blood cultures neg at 48 hours. Has been febrile free for ~48 hours; Tylenol to prn on dc for fevers. #Hypokalemia | hypomagnesemia K low at 3.3 s/p repletion prior to dc. Discussed w/ general surgery 10/26. - Patient discharged home 10/26 w/ plans to follow up outpatient w/ general surgery for continued care. Admission HPI Per Admitting Provider Mr. Masterson is a 64-year-old male with PMH of SNHL who presented on 10/18 after developing abdominal pain, nausea, and vomiting. Patient woke up feeling fine yesterday, but then around 8 AM started having lower abdominal pain intermittently. Did not take any pain medicine for this. Later in the day he started vomiting and was unable to keep down solids or liquids. He vomited again this morning. Last bowel movement was yesterday morning just before all his symptoms began; he has not had a bowel movement since. No prior history of abdominal surgeries, adhesions, or hernias. No prior history of small bowel obstructions. No sick contacts. No diarrhea. No fevers. Patient denies smoking or tobacco use. He reports he is not currently having any abdominal pain, but earlier yesterday he had 7 out of 10 abdominal pain in the lower stomach just below the umbilicus; no radiation. Patient does not take any medicine on a daily basis. Vital signs stable at time of admission. ED course: Droperidol 1.25 mg IV NSS 1000 mL IV Fentanyl 50 mcg IV ROS: Patient endorses abdominal pain just below the umbilicus (improving), nausea, and vomiting. Patient denies fever, chills, night sweats, lightheadedness when walking, chest pain, chest palpitations, SOB, pleuritic CP, cough, diarrhea, or changes in urinary habits. Discharge Exam General: NAD, VS as above Resp: normal respiratory effort Extremities: Moves all extremities, no edema Neuro: A&O x3, Skin: intact, no lesions noted Discharge Plan Discharge Items Patient Disposition: Home - Self-Care Reason For Visit: SBO Discharge Diagnosis: diagnostic laparoscopy release of small bowel obstruction partial small bowel resection Condition on Discharge: Fair Activity: Per Instructions section Lifting: No more than 10 pounds Bathing Comment: may shower; no soaking in tubs/pools x 2 weeks Exercise/Sports: Wait until after follow-up appointment Driving/Machine Use: no driving while taking narcotics for pain Non-emergency contact: Primary Care Provider and Surgeon Call non-emergency contact if: you have any medication questions, your symptoms worsen, your pain is worsening, your pain is unusual for you, you have a fever, your temperature is above 101.5, your wound has increased redness, your wound has increased drainage and your wound pain has increased Follow-up/Referrals: Robert Jiang MD [Surgeon] - 11/09/24 10:00 am (Please call to schedule follow up in the office in 2 weeks ) PCP,NO [Primary Care Provider] - Diet: Low Fiber Addtl Attending Provider Instructions: SPECIAL CARE INSTRUCTIONS: * You have bernice in place that will be removed at your follow up appointment ( about 14 days from your surgical procedure). If your wounds are not draining you may keep them open to air or if you wish for comfort may cover and change daily with dry gauze and medical tape. * You may shower. NO soaking in pools or baths for 2 weeks * No lifting greater than 10lbs. No strenuous exercise until cleared by surgeon. Light walking is accepted. * No driving while taking narcotic pain medication; wait at least 3 days * No drinking alcohol while taking narcotic pain medication * May use Ibuprofen/Tylenol over the counter for pain as tolerated. Do not exceed 3grams of Tylenol per 24 hours * Expect some swelling and bruising. * Diet- low fiber diet until follow up with the surgeon Call your doctor if: * Temperature above 101 degrees, nausea/vomiting, fever/chills * Pain not relieved by pain medicine ordered * There is increased drainage or redness from any incision * You have any unanswered questions or concerns [phone]. *Please establish with a PCP within the next 1-2 weeks for continued care of electrolyte values. They have been replaced prior to discharge. FOLLOW UP VISIT: If not already scheduled, please call the office for a follow-up visit. Office Pending Studies at Discharge: Yes Studies:: surgical pathology Stand-Alone Forms: [facility] [employer], Smoking Cessation Medications and DC Order Prescriptions: No Action No Known Home Medications Discharge Orders: Discharge Order (Routine); Ordered 10/26/24 Ordered By: Sadie Hill/Other Patient Handouts: Low-Fiber Diet Admission Data Admit Date/Time: 10/20/24 09:25 Attending Provider: Anatoly Aquino Admit Provider: Vu Nunes Primary Care Provider: PCP,NO Other Providers: Shivam Carolina; Lm Cabral; Mary Jane Marcial; Robert Jiang Other Interventions: Discharge Summary Assessment (RN) Last Done: 10/26/24 10:42 Hospital Stay Data Consultations 10/18/24 10:18 Consult General Surgery Stat ED Decision to Admit Stat Procedures Performed Operation Date: 10/21/24 09:30 Actual Procedures p Laparoscopic Hand Assisted Small Bowel Resection wtih Anastomosis(Not Applicable) - Robert Jiang MD Diagnostic Imagining Performed 10/18/24 08:12 CT abd pelvis IV con only Stat 10/20/24 11:52 CT abd pelvis oral con only Routine 10/22/24 17:35 CT angio chest PE protocol Stat 10/22/24 17:41 CT Abd and Pelvis [CT abd pelvis IV con only] Stat Pending Results Patient Have Any Pending Studies at Discharge: Yes Discharge Instructions Given to Patient (Per Discharging Provider) SPECIAL CARE INSTRUCTIONS: * You have bernice in place that will be removed at your follow up appointment (about 14 days from your surgical procedure). If your wounds are not draining you may keep them open to air or if you wish for comfort may cover and change daily with dry gauze and medical tape. * You may shower. NO soaking in pools or baths for 2 weeks * No lifting greater than 10lbs. No strenuous exercise until cleared by surgeon. Light walking is accepted. * No driving while taking narcotic pain medication; wait at least 3 days * No drinking alcohol while taking narcotic pain medication * May use Ibuprofen/Tylenol over the counter for pain as tolerated. Do not exceed 3grams of Tylenol per 24 hours * Expect some swelling and bruising. * Diet- low fiber diet until follow up with the surgeon Call your doctor if: * Temperature above 101 degrees, nausea/vomiting, fever/chills * Pain not relieved by pain medicine ordered * There is increased drainage or redness from any incision * You have any unanswered questions or concerns [phone]. *Please establish with a PCP within the next 1-2 weeks for continued care of electrolyte values. They have been replaced prior to discharge. FOLLOW UP VISIT: If not already scheduled, please call the office for a follow-up visit. Office Supervising Physician Co-Signing Physician Notes The patient was not seen by me. The chart was reviewed. Case discussed with KADEN Yanez. Agree with assessment and plan Total Time Total Time Spent Total Time Spent (In Minutes): 50 Total Time Includes: Examination of the Patient, Discharge Planning, Medication Reconciliation, Communication With Other Providers and Other Coding Level of Care Code 06229 INP/OBS DISCH >30 MIN Diagnoses SBO (small bowel obstruction) K56.609 Fever R50.9 Sinus tachycardia R00.0 Aspiration pneumonia J69.0"
[2024-10-26 10:46] VITALS: BP 125/84; PULSE 85
--- NOTE | 2024-10-26 10:59 | Surgery Progress Note ---
Date of Service October 26, 2024 Assessment & Plan (1) SBO (small bowel obstruction): Plan: POD#5 s/p Laparoscopic Hand Assisted Small Bowel Resection with Anastomosis,no acute issues. Post op course complicated by post op ileus and pneumonia,now stable for discharge from surgery standpoint, with followup and return precautions. Admission and Anticipated Discharge Date Admission Date: October 20, 2024 Subjective Patient is POD 5. Post op course was complicated by ileus and pneumonia. He is doing well now. He is tolerating solid diet, ambulating, and urinating well. Physical Exam Constitutional: WD/WN, vitals as above Respiratory: normal effort Gastrointestinal (Abdomen): soft, non distended, incisions healing well Results & Data Vital Signs (Past 12 Hours) Vital Signs Temp Pulse Pulse Resp BP BP Pulse Ox 10/26/24 10:42 37.1 C 85 18 125/84 142/84 H 91 10/26/24 07:53 89 10/26/24 07:39 37.1 C 85 18 142/84 H 91 10/26/24 03:34 36.7 C 81 20 147/88 H 92 10/26/24 00:20 37.1 C 68 18 127/81 93 O2 Del Method 10/26/24 10:42 10/26/24 07:53 10/26/24 07:39 Room Air 10/26/24 03:34 Room Air 10/26/24 00:20 Room Air Sodium 135 mmol/L (136-145) L 10/26/24 Potassium 3.3 mmol/L (3.5-5.1) L 10/26/24 Chloride 102 mmol/L (98-107) 10/26/24 Carbon Dioxide 26 mmol/L (21-32) 10/26/24 Anion Gap 7 (3-11) 10/26/24 BUN 9 mg/dl (6-23) 10/26/24 Creatinine 0.61 mg/dl (0.6-1.4) 10/26/24 eGFR 107.26 10/26/24 Est GFR ( Amer) 87.1 ml/min 09/20/23 Est GFR (Non-Af Amer) 75.2 ml/min 09/20/23 BUN/Creatinine Ratio 14.8 (10-20) 10/26/24 Glucose 100 mg/dl (70-99(Fasting)) H 10/26/24 Calcium 7.9 mg/dl (8.6-10.3) L 10/26/24 Phosphorus 2.2 mg/dl (2.5-4.9) L 10/26/24 Total Bilirubin 0.7 mg/dl (0.2-1.0) 10/25/24 AST 12 U/L (13-39) L 10/25/24 ALT 8 U/L (7-52) 10/25/24 Alkaline Phosphatase 48 U/L (34-104) 10/25/24 Total Protein 5.3 gm/dl (6.0-8.3) L 10/25/24 Albumin 2.7 gm/dl (3.4-5.0) L 10/25/24 Globulin 2.6 gm/dl (2.5-4.0) 10/25/24 PG Care Time/CCT Total # of Minutes Spent Total Time Spent with Patient: Total time spent is greater than 50% in coordination of care (as documented) at patient's floor/unit and/or counseling patient: Coding Level of Care Code 76730 Post Operative Follow-Up Diagnoses SBO (small bowel obstruction) K56.609
[2024-10-26 11:31] VITALS: TEMP 99.9
--- NOTE | 2024-10-26 15:46 | Electrocardiogram Report ---
Test Reason : Blood Pressure : */* mmHG Vent. Rate : 117 BPM Atrial Rate : 117 BPM P-R Int : 168 ms QRS Dur : 98 ms QT Int : 318 ms P-R-T Axes : 49 20 45 degrees QTcB Int : 443 ms Sinus tachycardia Otherwise normal ECG When compared with ECG of 18-Oct-2024 08:26, HR has increased Confirmed by Dhruv Boucher ([id number]) on 10/26/2024 3:45:51 PM Referred By: REFERRED SELF Confirmed By: Dhruv Boucher
== END 2024-10-26 12:29 | disposition home or self-care (01) | DRG 853 ==
LOC: ED 07:51 → EDINP 07:51 → SUATTDRO 11:20 → 3W 13:27 → SUATTDRO 10-20 09:25 → 2W 10-22 19:48
DX: K63.1 Perforation of intestine (nontraumatic); R11.2 Nausea with vomiting, unspecified; E87.6 Hypokalemia; Y83.8 Other surgical procedures as the cause of abnormal reaction of the patient, or of later complication, without mention of misadventure at the time of the procedure; K91.89 Other postprocedural complications and disorders of digestive system; E83.42 Hypomagnesemia; K56.609 Unspecified intestinal obstruction, unspecified as to partial versus complete obstruction; R18.8 Other ascites; A41.9 Sepsis, unspecified organism; R10.84 Generalized abdominal pain; J69.0 Pneumonitis due to inhalation of food and vomit; K65.9 Peritonitis, unspecified; R00.0 Tachycardia, unspecified; Y92.230 Patient room in hospital as the place of occurrence of the external cause